=== PATIENT | female | born 2000 | race Caucasian/White ===

== ENCOUNTER 2023-01-22 00:57 | Emergency (ER) | payer OTHER, SELFPAY ==
[2023-01-22 01:04] VITALS: BP 160/99; PULSE 74; RESP 16; TEMP 36.6; O2SAT 99; BMI 21.9
--- NOTE | 2023-01-22 01:04 | ECG_ITS ---
[facility] Test Date: 2023-01-22 Pat Name: Lydia Adam Department: Room: Gender: Female Auto Parker: : 2000 Requested By: Estrada Barth Order Number: [id number] Milo MD: Dheeraj Vela M.D. Measurements Intervals [place] Rate: 77 P: 77 [place]: 166 QRS: 117 QRSD: 112 T: 83 QT: 387 QTc: 440 Interpretive Statements SINUS RHYTHM INCOMPLETE RIGHT BUNDLE BRANCH BLOCK [90+ ms QRS DURATION, TERMINAL R IN V1/V2, 40+ ms S IN I/aVL/V4/V5/V6] LEFT POSTERIOR FASCICULAR BLOCK [QRS AXIS > 109, INFERIOR Q] No previous ECG available for comparison Electronically Signed On 01-22-2023 8:36:41 BUSINESS CONTINUITY COORDINATOR by Dheeraj Vela M.D. [email or web address]
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
[2023-01-22 01:25] VITALS: BP 159/101; PULSE 70; RESP 21; O2SAT 97
[2023-01-22 01:26] LABS: Basophils % 0.4 %; Eosinophils # 0.1 10^3/uL (0.0-0.8); Eosinophils % 1.3 %; Hematocrit 37.4 % (36-47); Lymphocytes # 2.4 10^3/uL (0.8-4.8); Lymphocytes % 24.7 %; Mean Corpuscular HGB Conc 33.7 g/dL (30-55); Mean Corpuscular Hemoglobin 33.7 pg (27-33); Mean Platelet Volume 9.2 fL (7.4-10.4); Monocytes # 0.9 10^3/uL (0.2-0.9); Monocytes % 9.3 %; Neutrophils # 6.31 10^3/uL (1.8-7.7); Neutrophils % 63.9 %; Nucleated Red Blood Cells % 0 %; Platelet Count 373 10^3/cmm (157-399); Red Blood Count 3.74 10^6/uL (3.85-5.65); Red Cell Distribution Width 13.7 % (12.1-15.1); White Blood Count 9.88 10^3/uL (3.29-11.43)
[2023-01-22 01:46] LABS: HCG, Serum Qual Negative (Negative)
[2023-01-22 01:52] LABS: Troponin(5th) Baseline < 6 ng/L (0-10)
[2023-01-22] MEDS: ketorolac 30 mg/mL INJ IVP (01:52)
[2023-01-22] MEDS: ondansetron 2 mg/ML SDV 2 mL 4 MG IVP (01:52)
--- NOTE | 2023-01-22 01:55 | ED_ITS ---
HPI - Chest Pain 2 General: Chief Complaint: Chest Pain Stated Complaint: Chest Pains Time Seen by Provider: 01/22/23 01:13 History of Present Illness: 22-year-old female with no prior history . She presents with left-sided chest discomfort radiating from posterior to anterior. It is worse with deep breath or coughing. She has been coughing over the last couple of days. Minimal amounts of sputum production. No fever. No leg swelling. Physical Exam 2 Const: COMMON NORMALS: no acute distress GENERAL APPEARANCE: cooperative; not ill appearing and not frail appearing HENMT: COMMON NORMALS: normocephalic, atraumatic and Normal external nose present HEAD & SCALP: normocephalic and atraumatic FACE & SINUS: normal facial exam and face symmetric NOSE: Normal external nose present Eye: COMMON NORMALS: Equal, round and reactive pupils present and EOMs intact bilaterally PUPIL: Yes Equal, round and reactive pupils present Neck/C-Spine: GENERAL: Yes trachea midline Chest: CHEST: Yes Symmetrical chest wall rise and Yes tenderness (left anterior and posterior. ) Resp: COMMON NORMALS: normal respiratory effort, No retractions, No use of accessory muscles and clear to auscultation bilaterally AUSCULTATION: clear to auscultation bilaterally Cardio: COMMON NORMALS: regular rate and regular rhythm RATE: regular rate RHYTHM: regular rhythm GI: COMMON NORMALS: Normal to inspection, nondistended, normoactive bowel sounds present Extremity: COMMON NORMALS: no pedal edema Neuro: ROGELIO COMA SCALE: document GCS findings [place] coma scale eye opening: Spontaneous [place] coma scale verbal response: Orientated [place] coma scale motor response: Obey commands Rogelio coma scale total score: 15 S ENSORY EXAM: Yes extremities (intact) Psych: COMMON NORMALS: speech normal SPEECH: Yes normal speech Skin: COMMON NORMALS: no rashes or lesions noted GENERAL SKIN EXAM: no rashes or lesions noted Course 2 Vital Signs: Vital signs: Vital Signs Temperature 98 F 01/22/23 01:04 Pulse Rate 65 01/22/23 03:08 Respiratory Rate 21 H 01/22/23 03:08 Blood Pressure 124/74 01/22/23 03:08 Pulse Oximetry 95 01/22/23 03:08 Oxygen Delivery Me thod Room Air 01/22/23 01:04 MDM - Chest Pain Medical Decision Making Reproducible chest pain in a young healthy patient. CBC is normal. EKG shows a sinus rhythm with incomplete right bundle branch block. [place]um is right. Rate is 75. Chest x-ray is not remarkable. Trops are negative. Labs not remarkable. Tx for costochondritis. Lab Data 01/22/23 00:19 12 00:19 Radiology Impressions Chest X-Ray 01/22/23 01:14 IMPRESSION: No acute findings. Laboratory Results WBC 9.88 10^3/uL (3.29-11.43) 01/22/23 00:19 RBC 3.74 10^6/uL (3.85-5.65) L 01/22/23 00:19 Hgb 12.60 g/dL (11.27-16.99) 01/22/23 00: Hct 37.4 % (36-47) 01/22/23 00:19 MCV 100.0 fl (85-98) H 01/22/23 00:19 MCH 33.7 pg (27-33) H 01/22/23: MCHC 33.7 g/dL (30-55) 01/22/23 00: RDW 13.7 % (12.1-15.1) 01/22/23 00:19 Plt Count 373 10^3/cmm (157-399) 01/22/23:19 MPV 9.2 fL (7.4-10.4) 01/22/23 00:19 Neut % (Auto) 63.9 % 01/22/23 00:19 Lymph % (Auto) 24.7 % 01/22/23:19 [place] % (Auto) 9.3 % 01/22/23:19 Eos % (Auto) 1.3 % 01/22/23 00:19 Baso % (Auto) 0.4 % 01/22/23 00:19 Neut # (Auto) 6.31 10^3/uL (1.8-7.7) 01/22/23 00:19 Lymph # (Auto) 2.4 10^3/uL (0.8-4.8) 01/22/23 00:19 [place] # (Auto) 0.9 10^3/uL (0.2-0.9) 01/22/23 00:19 Eos # (Auto) 0.1 10^3/uL (0.0-0.8) 01/22/23 00:19 Baso # (Auto) 0.0 10^3/uL (0.0-0.1) 01/22/23 00:19 Nucleated RBC % (auto) 0 % 01/22/23 00: Nucleated RBCs # 0.0 /100WBC 01/22/23 00:19 Sodium 136 mmol/L (136-145) 01/22/23 00:19 Potassium 3.8 mmol/L (3.5-5.1) 01/22/23 00:19 Chloride 101 mmol/L (98-107) 01/22/23 00:19 Carbon Dioxide 23 mmol/L (22-29) 01/22/23 00:19 Anion Gap 15.8 (5-19) 01/22/23:19 BUN 15 mg/dL (6-20) 01/22/23 00:19 Creatinine 0.8 mg/dL (0.5-0.9) 01/22/23 00:19 GFR Calculation 88.1 mL/min (90-130) L 01/22/23 00:19 Glucose 92 mg/dL (65-115) 01/22/23 00:19 Calculated Osmolality 282 mOsm/kg (285-295) L 01/22/23 00:19 Calcium 9.4 mg/dL (8.5-10.5) 01/22/23 00:19 Total Bilirubin 0.2 mg/dL (0.15-1.2) 01/22/23 00:19 AST 32 U/L (0-32) 01/22/23 00:19 ALT 30 U/L (0-33) 01/22/23 00:19 Alkaline Phosphatase 58 U/L (35-105) 01/22/23 00:19 Creatine Kinase 73 U/L (26-192) 01/22/23 00:19 Troponin T Baseline < 6 ng/L (0-10) 01/22/23 00:19 Troponin T 120 Minute 6.00 ng/L (0-10) 01/22/23 02:05 Delta Troponin T 0.06387 ABS# (0-10) 01/22/23 02:05 NT-Pro-B Natriuret Pep 149 pg/mL (0-125) H 01/22/23 00:19 Total Protein 7.0 g/dL (6.6-8.7) 01/22/23 00:19 Albumin 4.1 g/dL (3.5-5.2) 01/22/23 00:19 Globulin 2.9 g/dL (1.3-4.6) 01/22/23 00:19 HCG, Qual Negative (Negative) 01/22/23 00:19 All radiology interpretation(s) finalized by discharge Discharge Plan Discharge Patient Disposition: Home Clinical Impression: Atypical chest pain, Costalchondritis Condition: Stable Prescriptions: New ketorolac 10 mg tablet 10 mg PO TID PRN (Reason: pain) Qty: 10 0RF Discharge Orders: Discharge ED (Routine); Ordered 01/22/23 Ordered By: Estrada Simon Patient Instructions: Chest Wall Pain (ED), Opioid Safety, Pain Management Coding 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
[2023-01-22 02:03] LABS: Alanine Aminotransferase 30 U/L (0-33); Albumin Level 4.1 g/dL (3.5-5.2); Alkaline Phosphatase 58 U/L (35-105); Anion Gap 15.8 (5-19); Aspartate Amino Transferase 32 U/L (0-32); Blood Urea Nitrogen 15 mg/dL (6-20); Calcium 9.4 mg/dL (8.5-10.5); Carbon Dioxide 23 mmol/L (22-29); Chloride 101 mmol/L (98-107); Creatine Phosphokinase 73 U/L (26-192); Globulin 2.9 g/dL (1.3-4.6); Glomerular Filtration Rate 88.1 mL/min (90-130); Glucose 92 mg/dL (65-115); NT Pro B Type Natriuretic Pept 149 pg/mL (0-125); Osmolality Calculated 282 mOsm/kg (285-295); Potassium 3.8 mmol/L (3.5-5.1); Sodium 136 mmol/L (136-145); Total Bilirubin 0.2 mg/dL (0.15-1.2)
[2023-01-22 02:33] LABS: Troponin 5 2HR Delta 0.00001 ABS# (0-10)
[2023-01-22 03:08] VITALS: BP 124/74; PULSE 65; RESP 21; O2SAT 95
== END 2023-01-22 03:29 | disposition home or self-care (01) ==
PROVIDERS: Emergency Provider Emergency Medicine
DX: R07.89 Other chest pain (principal); M94.0 Chondrocostal junction syndrome [Tietze]
CPT/HCPCS: 36415; 71045; 80053; 82550; 83880; 84484; 84703; 85025; 93005; 96374; 96375; 99285; J1885; J2405

== ENCOUNTER 2023-09-02 18:45 | Emergency (ER) | payer OTHER, SELFPAY ==
[2023-09-02 18:45] VITALS: BP 136/81; PULSE 75; RESP 20; TEMP 36.4; O2SAT 96; BMI 21.9
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
[2023-09-02 18:55] VITALS: BP 136/81; PULSE 73; RESP 20; O2SAT 94
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
[2023-09-02 19:24] LABS: Basophils # 0.1 10^3/uL (0.0-0.1); Basophils % 1.1 %; Eosinophils # 0.2 10^3/uL (0.0-0.8); Eosinophils % 1.9 %; Hematocrit 44.9 % (36-47); Lymphocytes # 2.3 10^3/uL (0.8-4.8); Lymphocytes % 27.4 %; Mean Corpuscular HGB Conc 33.6 g/dL (30-55); Mean Corpuscular Hemoglobin 32.3 pg (27-33); Mean Corpuscular Volume 95.9 fl (85-98); Mean Platelet Volume 9.2 fL (7.4-10.4); Monocytes # 0.8 10^3/uL (0.2-0.9); Monocytes % 9.2 %; Neutrophils # 5.14 10^3/uL (1.8-7.7); Nucleated Red Blood Cells % 0 %; Platelet Count 310 10^3/cmm (157-399); Red Blood Count 4.68 10^6/uL (3.85-5.65); Red Cell Distribution Width 11.2 % (12.1-15.1); White Blood Count 8.55 10^3/uL (3.29-11.43)
[2023-09-02 19:45] LABS: Add Urine Microscopic? NO; Charge for UA Resulting for Rev
[2023-09-02 19:45] LABS: Alanine Aminotransferase 100 U/L (0-33); Albumin Level 4.9 g/dL (3.5-5.2); Alkaline Phosphatase 58 U/L (35-105); Anion Gap 21.5 (5-19); Aspartate Amino Transferase 98 U/L (0-32); Blood Urea Nitrogen 6 mg/dL (6-20); Carbon Dioxide 17 mmol/L (22-29); Chloride 99 mmol/L (98-107); Creatinine Clr Calc Pharmacy 141.1067; Globulin 3.3 g/dL (1.3-4.6); Glomerular Filtration Rate 121.8 mL/min (90-130); Glucose 75 mg/dL (65-115); Osmolality Calculated 274 mOsm/kg (285-295); Potassium 3.5 mmol/L (3.5-5.1); Sodium 134 mmol/L (136-145); Total Bilirubin 0.3 mg/dL (0.15-1.2); Total Protein 8.2 g/dL (6.6-8.7)
[2023-09-02 19:51] LABS: Alcohol Level 328 mg/dL (0-10)
[2023-09-02 19:51] LABS: Bilirubin Urine Neg (Negative); Blood Urine Neg (Negative); Glucose Urine UA Norm (Normal); Ketones Urine Negative (Negative); Leukocyte Esterase Urine Negative (Negative); Nitrate Urine Negative (Negative); Protein Urine Neg (Negative); Urine Appearance Clear (CLEAR); Urine Color Yellow (Yellow); Urobilinogen Urine Neg (Negative); pH Urine 5 (5-7)
[2023-09-02 20:34] VITALS: BP 129/75; PULSE 61; RESP 18; O2SAT 96
== END 2023-09-02 20:36 | disposition home or self-care (01) ==
PROVIDERS: Emergency Provider Emergency Medicine; PCP Family Medicine
DX: S06.0X1A Concussion with loss of consciousness of 30 minutes or less, initial encounter (principal); F10.920 Alcohol use, unspecified with intoxication, uncomplicated; Y90.8 Blood alcohol level of 240 mg/100 ml or more; V86.99XA Unspecified occupant of other special all-terrain or other off-road motor vehicle injured in nontraffic accident, initial encounter
CPT/HCPCS: 36415; 70450; 72125; 80053; 80307; 81003; 85025; 99284

== ENCOUNTER 2023-12-26 18:39 | Inpatient (IN) | payer OTHER, SELFPAY ==
[2023-12-26] VITALS (8 sets, daily range): BP systolic 117–150; BP diastolic 72–91; PULSE 66–75; RESP 16–24; TEMP 36.6–36.8; O2SAT 96–100; BMI 21.9
[2023-12-26 19:36] LABS: Basophils % 0.4 %; Lymphocytes # 1.8 10^3/uL (0.8-4.8); Lymphocytes % 21.6 %; Mean Corpuscular HGB Conc 33.8 g/dL (30-55); Mean Corpuscular Hemoglobin 33.1 pg (27-33); Mean Corpuscular Volume 98.2 fl (85-98); Mean Platelet Volume 10.8 fL (7.4-10.4); Monocytes # 0.5 10^3/uL (0.2-0.9); Monocytes % 5.3 %; Neutrophils # 6.14 10^3/uL (1.8-7.7); Neutrophils % 72.2 %; Nucleated Red Blood Cells % 0 %; Platelet Count 173 10^3/cmm (157-399); Red Blood Count 4.89 10^6/uL (3.85-5.65); Red Cell Distribution Width 16.3 % (12.1-15.1); White Blood Count 8.49 10^3/uL (3.29-11.43)
[2023-12-26 19:37] LABS: HCG, Serum Qual Negative (Negative)
[2023-12-26 19:44] LABS: Alanine Aminotransferase 151 U/L (0-33); Albumin Level 3.7 g/dL (3.5-5.2); Alkaline Phosphatase 207 U/L (35-105); Aspartate Amino Transferase 299 U/L (0-32); Blood Urea Nitrogen 4 mg/dL (6-20); Calcium 8.7 mg/dL (8.5-10.5); Carbon Dioxide 20 mmol/L (22-29); Chloride 92 mmol/L (98-107); Globulin 2.7 g/dL (1.3-4.6); Glomerular Filtration Rate 87.4 mL/min (90-130); Glucose 122 mg/dL (65-115); Lipase 283 U/L (13-60); Osmolality Calculated 268 mOsm/kg (285-295); Sodium 130 mmol/L (136-145); Total Bilirubin 2.3 mg/dL (0.15-1.2); Total Protein 6.4 g/dL (6.6-8.7)
[2023-12-26 20:06] LABS: Anion Gap 21.9 (5-19); Potassium 3.9 mmol/L (3.5-5.1)
--- NOTE | 2023-12-26 20:11 | USR_ITS ---
PROCEDURE INFORMATION: Exam: US Abdomen, Limited; Right Upper Quadrant Exam date and time: 12/26/2023 7:23 PM Age: 23 years old Clinical indication: Abdominal pain; Epigastric; ; Additional info: Ruq pain TECHNIQUE: Imaging protocol: Real time ultrasound of the abdomen with image documentation. Limited exam focused on the right upper quadrant. COMPARISON: No relevant prior studies available. FINDINGS: Liver: Echogenic. No masses. Gallbladder: Normal. No gallstones. There is no gallbladder wall thickening. Biliary ducts: Normal. No stones. No dilation. Pancreas: Visualized pancreas psoas edema surrounding the pancreatic tail. Right kidney: Normal. No mass. No hydronephrosis. US/US gall bladder [id number] IMPRESSION: Edema surrounding the pancreatic tail.
--- NOTE | 2023-12-26 20:11 | CTR_ITS ---
PROCEDURE INFORMATION: Exam: CT Abdomen And Pelvis With Contrast Exam date and time: 12/26/2023 9:13 PM Age: 23 years old Clinical indication: Abdominal pain; Additional info: Ruq pain TECHNIQUE: Imaging protocol: Computed tomography of the abdomen and pelvis with contrast. Radiation optimization: All CT scans at this facility use at least one of these dose optimization techniques: automated exposure control; mA and/or kV adjustment per patient size (includes targeted exams where dose is matched to clinical indication); or iterative reconstruction. Contrast material: OMNI 350; Contrast volume: 100 ml; Contrast route: INTRAVENOUS (IV); COMPARISON: US gall bladder [id number] 12/26/2023 7:23 PM RADIATION DOSE METRICS: Total DLP (mGy-cm): 390.27 FINDINGS: Diaphragm: Small hiatal hernia Liver: Decreased density of the liver, evidence for fatty infiltration. Gallbladder and biliary ducts: Normal. No calcified stones. No ductal dilation. Pancreas: Stranding and fluid surrounding the tail pancreas. Spleen: Normal. No splenomegaly. Adrenal glands: Normal. No mass. Kidneys and ureters: Normal. No hydronephrosis. Stomach and bowel: Unremarkable. No obstruction. No mucosal thickening. Appendix: No evidence of appendicitis. Intraperitoneal space: Unremarkable. No free air. No significant fluid collection. Vasculature: Unremarkable. No abdominal aortic aneurysm. Lymph nodes: Unremarkable. No enlarged lymph nodes. Urinary bladder: Unremarkable as visualized. Reproductive: Unremarkable as visualized. Bones/joints: Unremarkable. No acute fracture. Soft tissues: Unremarkable. CT/CT abdomen pelvis w con* [id number] IMPRESSION: Stranding and fluid surrounding the tail of the pancreas. Findings compatible with acute pancreatitis without pseudocyst .
[2023-12-26 20:13] LABS: Alcohol Level < 10 mg/dL (0-10)
--- NOTE | 2023-12-26 20:14 | ED_ITS ---
HPI - Abdominal Pain 2 General: Chief Complaint: Abdominal Pain Stated Complaint: abd pain Time Seen by Provider: 12/26/23 19:48 Source: patient Mode of arrival: ambulatory Limitations: no limitations History of Present Illness: 23-year-old female states she has been o n a drinking binge she states that she does drink alcohol regularly but not daily states she had been on a binge last 3 days started having severe epigastric abdominal pain with nausea and vomiting states pain sharp in nature in her epigastric and right upper quadrant rates her pain a 9 out of 10 denies any history of any gallbladder issues denies any abdominal surgeries Associated Symptoms: Reports nausea and vomiting; Denies chills, diarrhea, dysuria and fever(s) Related Data Date of Last Menstrual Period: 11/23/23 Previous Rx's Medication Instructions Recorded ketorolac 10 mg tablet 10 mg PO TID PRN pain #10 tabs 01/22/23 Allergies Allergy/AdvReac Type Severity Reaction Status Date / Time No Known Allergies Allergy Verified 12/26/23 19:31 Review of Systems 2 Const: Denies: fever(s), chills, body aches or change in appetite ENMT: Denies: throat pain or dental pain Card: Denies: chest pain Resp: Denies: dyspnea GI: Reports: abdominal pain, nausea and vomiting; Denies: diarrhea : Denies: dysuria Musc: Denies: neck pain or back pain Skin/Breast: Denies: rash Neuro: Denies: headache(s) [facility] ED 2 Female Reproductive History: Date of last menstrual period: 11/23/23 Physical Exam 2 Const: COMMON NORMALS: no acute distress, patient oriented x3 and healthy appearing HENMT: COMMON NORMALS: normocephalic and atraumatic HEAD & SCALP: n ormocephalic and atraumatic Neck/C-Spine: COMMON NORMALS: full ROM and supple Chest: COMMONS NORMALS: normal inspection of the chest Resp: COMMON NORMALS: normal respiratory effort, No retractions, No use of accessory muscles and clear to auscultation bilaterally AUSCULTATION: clear to auscultation bilaterally Cardio: COMMON NORMALS: regular rate RATE: regular rate GI: COMMON NORMALS: Normal to inspection, nondistended, normoactive bowel sounds present, Soft to palpation and no masses PALPATION: Yes Soft to palpation and Yes Tenderness to palpation present (GI) Details: RUQ Extremity: COMMON NORMALS: normal to inspection and full ROM Neuro: COMMON NORMALS: patient oriented x3, moves all extremities and no focal motor deficits Psych: COMMON NORMALS: mental status grossly normal, Normal thought process present and cooperative THOUGHT PROCESS: Normal thought process present Skin: COMMON NORMALS: no rashes or lesions noted and no wounds GENERAL SKIN EXAM: no rashes or lesions noted Course 2 Vital Signs: Vital signs: Vital Signs Temperature 97.9 F 12/26/23 19:20 Pulse Rate 66 12/26/23 22:00 Respiratory Rate 18 12/26/23 21:22 Blood Pressure 124/72 12/26/23 22:00 Pulse Oximetry 96 12/26/23 22:00 Oxygen Delivery Me thod Room Air 12/26/23 22:00 MDM - Abdominal Pain Medical Decision Making Patient presents with abdominal pain she does have pancreatitis no signs of gallstone or common bile duct dilatation likely from alcohol abuse pain has improved spoke to hospitalist will admit for observation Medical Records I reviewed the patient's medical records. Lab Data I reviewed the patient's lab results. 12/26/23 19:27 12/26/23 19:14 Labs/Radiology: Radiology Impressions Abdomen/Pelvis CT 12/26/23 20:11 IMPRESSION: Stranding and fluid surrounding the tail of the pancreas. Findings compatible with acute pancreatitis without pseudocyst . Gallbladder Ultrasound 12/26/23 20:11 IMPRESSION: Edema surrounding the pancreatic tail. Laboratory Results WBC 8.49 10^3/uL (3.29-11.43) 12/26/23 19:27 RBC 4.89 10^6/uL (3.85-5.65) 12/26/23 19:27 Hgb 16.20 g/dL (11.27-16.99) 12/26/23 19:27 Hct 48.0 % (36-47) H 12/26/23 19:27 MCV 98.2 fl (85-98) H 12/26/23 19:27 MCH 33.1 pg (27-33) H 12/26/23 19:27 MCHC 33.8 g/dL (30-55) 12/26/23 19:27 RDW 16.3 % (12.1-15.1) H 12/26/23 19:27 Plt Count 173 10^3/cmm (157-399) 12/26/23 19: MPV 10.8 fL (7.4-10.4) H 12/26/23 19: Neut % (Auto) 72.2 % 12/26/23 19: Lymph % (Auto) 21.6 % 12/26/23 19: [place] % (Auto) 5.3 % 12/26/23 19: Eos % (Auto) 0.0 % 12/26/23 19: Baso % (Auto) 0.4 % 12/26/23 19: Neut # (Auto) 6.14 10^3/uL (1.8-7.7) 12/26/23 19: Lymph # (Auto) 1.8 10^3/uL (0.8-4.8) 12/26/23 19: [place] # (Auto) 0.5 10^3/uL (0.2-0.9) 12/26/23 19: Eos # (Auto) 0.0 10^3/uL (0.0-0.8) 12/26/23 19: Baso # (Auto) 0.0 10^3/uL (0.0-0.1) 12/26/23 19: Nucleated RBC % (auto) 0 % 12/26/23 19: Nucleated RBCs # 0.0 /100WBC 12/26/23 19:27 Sodium 130 mmol/L (136-145) L 12/26/23 19:14 Potassium 3.9 mmol/L (3.5-5.1) 12/26/23 19:14 Chloride 92 mmol/L (98-107) L 12/26/23 19:14 Carbon Dioxide 20 mmol/L (22-29) L 12/26/23 19:14 Anion Gap 21.9 (5-19) H 12/26/23 19:14 BUN 4 mg/dL (6-20) L 12/26/23 19:14 Creatinine 0.8 mg/dL (0.5-0.9) 12/26/23 19:14 GFR Calculation 87.4 mL/min (90-130) L 12/26/23 19:14 Glucose 122 mg/dL (65-115) H 12/26/23 19:14 Calculated Osmolality 268 mOsm/kg (285-295) L 12/26/23 19:14 Calcium 8.7 mg/dL (8.5-10.5) 12/26/23 19:14 Total Bilirubin 2.3 mg/dL (0.15-1.2) H 12/26/23 19:14 AST 299 U/L (0-32) H 12/26/23 19:14 ALT 151 U/L (0-33) H 12/26/23 19:14 Alkaline Phosphatase 207 U/L (35-105) H 12/26/23 19:14 Total Protein 6.4 g/dL (6.6-8.7) L 12/26/23 19:14 Albumin 3.7 g/dL (3.5-5.2) 12/26/23 19:14 Globulin 2.7 g/dL (1.3-4.6) 12/26/23 19:14 Lipase 283 U/L (13-60) H 12/26/23 19:14 HCG, Qual Negative (Negative) 12/26/23 19:14 Ethyl Alcohol < 10 mg/dL (0-10) 12/26/23 19:14 No radiology studies performed this visit Discharge Plan Discharge Patient Disposition: Admitted As Inpatient Clinical Impression: Pancreatitis Condition: Stable 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
[2023-12-26] MEDS: morphine 4 mg/mL SDV 1 mL IVP (20:43)
[2023-12-26] MEDS: metoclopramide 5 mg/mL SDV 2 mL 10 MG IVP (20:44)
[2023-12-26] MEDS: diphenhydrAMINE 50 mg/mL SDV 1mL IVP (20:54)
[2023-12-26] MEDS: iohexol 350 mg/mL 500 mL Btl (per mL) IV (21:14)
[2023-12-26] MEDS: sodium chloride 0.9% 1,000 ML 999 ML IV (21:21)
--- NOTE | 2023-12-26 22:03 | P.HP_ITS ---
Providers/Chief Complaint 2 Primary Care Provider: Cory Judd MD Chief Complaint: abd pain History of Present Illness Lydia Adam is a 23 year old female with no significant past medical history presented with chief complaint nausea vomiting abdominal pain. Patient is stating that she is drinking beer and vodka almost on daily basis more than 6 shots a day. Never had pancreatitis in the past presented with 72 hours of nausea vomiting abdominal pain. Patient has vomited more than 20 times. Complaining of epigastric pain. No blood in vomit. Not able to tolerate anything p.o., presentation consistent with pancreatitis Review of Systems 2 Const: Denies: fever(s) Eyes: Denies: change in vision ENMT: Denies: throat pain Card: Denies: chest pain Resp: Denies: dyspnea GI: Reports: abdominal pain, nausea and vomiting : Denies: flank pain Medications/Allergies Home Medications Medication Instructions Recorded Confirmed Last Taken Type ketorolac 10 mg tablet 10 mg PO TID PRN pain #10 tabs 01/22/23 Unknown Rx Allergies Allergy/AdvReac Type Severity Reaction Status Date / Time No Known Allergies Allergy Verified 12/26/23 19:31 PFSH Acute 2 Female Reproductive History: Date of last menstrual period: 11/23/23 Vitals/I&O/Wt Last Vital Signs Temp 97.9 F 12/26/23 19:20 Pulse 70 12/26/23 21:22 Resp 18 12/26/23 21:22 BP 136/91 12/26/23 21:22 Pulse Ox 98 12/26/23 21:22 O2 Del Method Room Air 12/26/23 21:22 Weight last 48 hrs Weight 63.503 kg Physical Exam 2 Narrative: Pleasant cooperative Young female Nonfocal neuroexam Epigastric tenderness Awake and alert Complaining of pain in abdomen Hemodynamically stable Currently on room air S1, S2 Clinically looks dehydrated Data 12/26/23 19:27 12/26/23 19:14 A&P Assessment and plan (1) Pancreatitis: Plan Alcohol-induced pancreatitis Will keep on clear liquid diet Dilaudid for pain management Start lactated Ringer at maintenance rate DVT prophylaxis added Full code Will put on CIWA protocol as well test is negative Attestations 2 Medical Necessity Statement*: Anticipating discharge within 48 hours Diagnoses Pancreatitis K85.90
--- NOTE | 2023-12-26 22:14 | PC.NURSE ---
Report called to Sarah on med surg, 250/ at 2210.
[2023-12-26 22:39] LABS: Bilirubin Urine Negative (Negative); Blood Urine Negative (Negative); Glucose Urine UA Negative (Normal); Ketones Urine Negative (Negative); Leukocyte Esterase Urine Negative (Negative); Nitrate Urine Negative (Negative); Protein Urine Negative (Negative); Urine Appearance Clear (CLEAR); Urine Color Yellow (Yellow); pH Urine 6.5 (5-7)
[2023-12-26 22:41] LABS: Add Urine Microscopic? YES; Bacteria Urine None Seen /hpf; Hyaline Casts Urine 0-4 /lpf; RBC Urine 0-2 /hpf (0-2); Specific Gravity, Urine 1.036 (1.005-1.030); Squamous Epithelial Cell Urine 0-5 /hpf (0-5); WBC Urine 0-5 /hpf (0-5)
[2023-12-26] MEDS: lactated ringers 1,000 ML 75 ML IV (23:01)
[2023-12-26] MEDS: enoxaparin 40 mg/0.4 mL Syringe SUBCUT (23:01)
[2023-12-26] MEDS: lanolin oint 7 gm 1 APPLIC TOPICAL (23:01)
[2023-12-26] MEDS: HYDROmorphone 1 mg/mL INJ 1 mL 0.4 MG IVP (23:02)
[2023-12-27] VITALS (11 sets, daily range): BP systolic 130–134; BP diastolic 82–90; PULSE 57–83; RESP 16–24; TEMP 36.6–36.8; O2SAT 94–97
[2023-12-27 05:07] LABS: Basophils % 0.3 %; Eosinophils % 0.3 %; Hematocrit 35.7 % (36-47); Lymphocytes # 2.1 10^3/uL (0.8-4.8); Mean Corpuscular HGB Conc 36.4 g/dL (30-55); Mean Corpuscular Hemoglobin 33.1 pg (27-33); Mean Corpuscular Volume 90.8 fl (85-98); Mean Platelet Volume 11.8 fL (7.4-10.4); Monocytes # 0.5 10^3/uL (0.2-0.9); Monocytes % 6.3 %; Neutrophils # 5.31 10^3/uL (1.8-7.7); Neutrophils % 66.6 %; Nucleated Red Blood Cells % 0 %; Platelet Count 140 10^3/cmm (157-399); Red Blood Count 3.93 10^6/uL (3.85-5.65); Red Cell Distribution Width 15.3 % (12.1-15.1); White Blood Count 7.96 10^3/uL (3.29-11.43)
[2023-12-27 05:26] LABS: Slide Review Slide Review Perform
[2023-12-27 05:34] LABS: Alanine Aminotransferase 119 U/L (0-33); Alkaline Phosphatase 173 U/L (35-105); Blood Urea Nitrogen 3 mg/dL (6-20); Calcium 7.4 mg/dL (8.5-10.5); Carbon Dioxide 18 mmol/L (22-29); Chloride 100 mmol/L (98-107); Creatinine Clr Calc Pharmacy 117.7818; Globulin 2.7 g/dL (1.3-4.6); Glucose 102 mg/dL (65-115); Magnesium 1.5 mg/dL (1.7-2.3); Osmolality Calculated 273 mOsm/kg (285-295); Sodium 133 mmol/L (136-145); Total Bilirubin 1.8 mg/dL (0.15-1.2); Total Protein 5.7 g/dL (6.6-8.7)
[2023-12-27 05:46] LABS: Anion Gap 19.2 (5-19); Aspartate Amino Transferase 201 U/L (0-32); Potassium 4.2 mmol/L (3.5-5.1)
[2023-12-27] MEDS: HYDROmorphone 1 mg/mL INJ 1 mL 0.4 MG IVP ×4 (06:11→19:35)
[2023-12-27] MEDS: ondansetron 2 mg/ML SDV 2 mL 4 MG IVP (06:15)
--- NOTE | 2023-12-27 07:08 | PC.NURSE ---
Pt states to this nurse that her last drink of alcohol was around 1100 on 12/26/23. States she had two small bottles of [place] honey and a beer.
[2023-12-27] MEDS: folic acid 1 mg Tablet PO (08:05)
[2023-12-27] MEDS: thiamine 100 mg Tablet PO (08:05)
[2023-12-27] MEDS: nicotine 21 mg Patch 1 PATCH TRANSDERMA (08:05)
[2023-12-27] MEDS: multivitamin therapeutic Tablet 1 TAB PO (08:05)
[2023-12-27] MEDS: pantoprazole 40 mg SDV IVP ×2 (08:06→17:05)
--- NOTE | 2023-12-27 10:14 | PC.CHAP ---
Pastoral Care Encounter/Spiritual Assessment Type of Contact [] Declined soup mixer visit [] Patient/Family/Request visit [] Outpatient visit [] Follow-up visit [] Physician referral [] Code/Alert [x] Routine visit [] Staff referral [] Actively dying [] Patient sleeping [] Family support [] [] Out of room [] Palliative care [] [] Receiving care in room [] Pre-surgical visit [] Trauma [] Long length of stay [] ICU visit [] Other: Relational/Emotional Strength [x] Patient feels connected with others/family/visitors/staff [] Distress [] Loneliness/isolation [] Abandonment Spirituality of Patient [x] Person of Vania [] Attends [employer] of their Vania [x] Believes in Prayer [] Reads Bible or Christian materials [] There are Spiritual issues to be addressed [employer] Interventions [x] Prayer [x] Active listening [] Non-anxious presence [x] Spiritual/emotional support [] Crisis/trauma care [] Spiritual counseling [] Bereavement support [] Provided bereavement packet [] Provided Bible/devotional materials [] Provided toy/stuffed animal, coloring book to patient or family member [] Provided Communion [] Anointing/[place] [] Salvation [x] Completed spiritual assessment [] Other: Impact on Illness or Injury [] Angry [] Fearful [] Anxious [] Often cries [] Exhaustion [] Unable to work [] Unable to attend temple [] Unable to walk/stand [] Unable to read [] Unable to drive [] Unable to eat/drink [] Unable to sleep [] Unable to be with family [] Patient intubated [] Other: Summary Time spent with patient 5 min
[2023-12-27] MEDS: lactated ringers 1,000 ML 75 ML IV (10:48)
[2023-12-27] MEDS: magnesium sulfate premix 1 GM/100 ML PIGGYBACK IV (12:37)
--- NOTE | 2023-12-27 16:07 | P.PN_ITS ---
Subjective 2 Subjective: Patient was seen this morning, she is passing gas from below, she continues to have abdominal pain, but improved compared to the night before, no visual hallucination, no tactile hallucinations, does have a mild tremor, denies any fevers, no chills Vitals/I&O/Wt Last Vital Signs Temp 98.0 F 12/27/23 11:54 Pulse 69 12/27/23 11:54 Resp 18 12/27/23 15:38 BP 133/82 12/27/23 11:54 Pulse Ox 96 12/27/23 11:54 O2 Del Method Room Air 12/27/23 11:54 12/27/23 12/27/23 12/27/23 06:59 14:59 22:59 Intake Total 600 / 1600 1263.75 / 1263.75 Balance 600 / 1200 1263.75 / 1263.75 Weight last 48 hrs Weight 60.838 kg Weight 59.421 kg Weight 63.503 kg Physical Exam 2 Const: COMMON NORMALS: no acute distress and patient oriented x3 Resp: COMMON NORMALS: normal respiratory effort, No retractions, No use of accessory muscles and clear to auscultation bilaterally AUSCULTATION: clear to auscultation bilaterally Cardio: COMMON NORMALS: regular rate, regular rhythm, S1 normal heart sound present and S2 normal heart sound present RATE: regular rate RHYTHM: r egular rhythm HEART SOUNDS: S1 normal heart sound present and S2 normal heart sound present GI: OTHER: Abdomen is soft, distended, diffuse tenderness, no guarding, no rebound, no rigidity Extremity: COMMON NORMALS: no pedal edema Neuro: COMMON NORMALS: patient oriented x3, CN's II-XII intact bilaterally and moves all extremities Psych: COMMON NORMALS: mental status grossly normal Data 12/27/23 04:12 12/27/23 04:12 A&P Assessment and plan (1) Pancreatitis: (2) Alcohol abuse with withdrawal: Plan Alcohol-induced pancreatitis CT scan abdomen pelvis CT/CT abdomen pelvis w con* [id number] IMPRESSION: Stranding and fluid surrounding the tail of the pancreas. Findings compatible with acute pancreatitis without pseudocyst . Ultrasound gallbladder US/US gall bladder [id number] IMPRESSION: Edema surrounding the pancreatic tail. Plan Will keep on clear liquid diet Dilaudid for pain management Continue LR Hypomagnesemia replace Monitor LFTs ? Banana bag DVT prophylaxis added Full code Will put on CIWA protocol as well test is negative Full code SCDs for DVT prophylaxis, Lovenox Attestations 2 Medical Necessity Statement*: Patient requires hospitalization for alcohol induced pancreatitis, alcohol withdrawal Diagnoses Pancreatitis K85.90 Alcohol abuse with withdrawal F10.139
[2023-12-27] MEDS: ipratropium-albuterol 3 mL Neb INHALATION (17:15)
[2023-12-27] MEDS: LORazepam 2 mg Tablet PO (18:32)
[2023-12-27] MEDS: enoxaparin 40 mg/0.4 mL Syringe SUBCUT (22:20)
[2023-12-28] VITALS (12 sets, daily range): BP systolic 119–150; BP diastolic 78–94; PULSE 73–87; RESP 17–20; TEMP 36.3–36.8; O2SAT 96–99
[2023-12-28] MEDS: lactated ringers 1,000 ML 75 ML IV ×2 (00:55→14:31)
[2023-12-28 05:06] LABS: Basophils % 0.2 %; Eosinophils # 0.1 10^3/uL (0.0-0.8); Eosinophils % 0.8 %; Hematocrit 36.2 % (36-47); Lymphocytes # 1.6 10^3/uL (0.8-4.8); Lymphocytes % 24.8 %; Mean Corpuscular HGB Conc 35.1 g/dL (30-55); Mean Corpuscular Hemoglobin 32.6 pg (27-33); Mean Corpuscular Volume 92.8 fl (85-98); Mean Platelet Volume 11.7 fL (7.4-10.4); Monocytes # 0.6 10^3/uL (0.2-0.9); Monocytes % 8.9 %; Nucleated Red Blood Cells % 0 %; Platelet Count 97 10^3/cmm (157-399); Red Cell Distribution Width 15.7 % (12.1-15.1)
[2023-12-28] MEDS: HYDROmorphone 1 mg/mL INJ 1 mL 0.4 MG IVP ×2 (05:07→09:05)
[2023-12-28 05:33] LABS: Alanine Aminotransferase 83 U/L (0-33); Albumin Level 2.9 g/dL (3.5-5.2); Alkaline Phosphatase 151 U/L (35-105); Anion Gap 13.7 (5-19); Aspartate Amino Transferase 112 U/L (0-32); Blood Urea Nitrogen 2 mg/dL (6-20); Calcium 7.5 mg/dL (8.5-10.5); Carbon Dioxide 25 mmol/L (22-29); Chloride 100 mmol/L (98-107); Creatinine Clr Calc Pharmacy 119.6111; Globulin 2.6 g/dL (1.3-4.6); Glucose 89 mg/dL (65-115); Magnesium 1.6 mg/dL (1.7-2.3); Osmolality Calculated 276 mOsm/kg (285-295); Phosphorus 4.1 mg/dL (2.5-4.5); Potassium 3.7 mmol/L (3.5-5.1); Sodium 135 mmol/L (136-145); Total Bilirubin 2.5 mg/dL (0.15-1.2); Total Protein 5.5 g/dL (6.6-8.7)
[2023-12-28 05:40] LABS: Slide Review Slide Review Perform
[2023-12-28] MEDS: nicotine 21 mg Patch 1 PATCH TRANSDERMA (08:23)
[2023-12-28] MEDS: pantoprazole 40 mg SDV IVP ×2 (08:23→17:13)
[2023-12-28] MEDS: multivitamin therapeutic Tablet 1 TAB PO (08:23)
[2023-12-28] MEDS: folic acid 1 mg Tablet PO (08:23)
[2023-12-28] MEDS: thiamine 100 mg Tablet PO (08:23)
--- NOTE | 2023-12-28 09:55 | XRR_ITS ---
PROCEDURE INFORMATION: Exam: XR Chest Exam date and time: 12/28/2023 10:22 AM Age: 23 years old Clinical indication: Wheezing; Additional info: Expiratory wheezes TECHNIQUE: Imaging protocol: Radiologic exam of the chest. Views: 1 view. COMPARISON: CR XR chest 1V portable [id number] 01/22/2023 1:17 AM FINDINGS: Lungs: Unremarkable. No consolidation. Pleural spaces: Unremarkable. No pleural effusion. No pneumothorax. Heart/Mediastinum: Unremarkable. No cardiomegaly. Bones/joints: There are postoperative changes involving the right clavicle. No acute bony abnormalities are appreciated. XR/XR chest 1V portable [id number] IMPRESSION: 1. No acute cardiopulmonary findings.
[2023-12-28 11:34] LABS: Estmated Average Glucose 105; Hemoglobin A1C 5.3 % (4.0-6.0)
[2023-12-28] MEDS: acetaminophen 500 mg Tablet PO (12:54)
[2023-12-28] MEDS: oxyCODONE 5 mg IR Tab/Cap PO ×3 (13:07→22:08)
--- NOTE | 2023-12-28 14:04 | P.PN_ITS ---
Subjective 2 Subjective: Patient was seen this morning, her abdominal pain is improving, no fevers, no chills, no cough, and her appetite is improving she is passing gas from below, Vitals/I&O/Wt Last Vital Signs Temp 97.4 F L 12/28/23 11:18 Pulse 83 12/28/23 11:18 Resp 17 12/28/23 13:07 BP 147/94 12/28/23 11:18 Pulse Ox 97 12/28/23 11:18 O2 Del Method Room Air 12/28/23 11:18 12/27/23 12/28/23 12/28/23 22:59 06:59 14:59 Intake Total 1235 / 2498.75 458.75 / 2957.50 360 / 360 Output Total 400 / 400 Balance 1235 / 2498.75 58.75 / 2557.50 360 / 360 Weight last 48 hrs Weight 61.779 kg Weight 60.838 kg Weight 59.421 kg Weight 63.503 kg Physical Exam 2 Const: COMMON NORMALS: no acute distress and patient oriented x3 Resp: COMMON NORMALS: normal respiratory effort, No retractions, No use of accessory muscles and clear to auscultation bilaterally AUSCULTATION: clear to auscultation bilaterally Cardio: COMMON NORMALS: regular rate, regular rhythm, S1 normal heart sound present and S2 normal heart sound present RATE: regular rate RHYTHM: r egular rhythm HEART SOUNDS: S1 normal heart sound present and S2 normal heart sound present GI: OTHER: Abdomen soft, nondistended, diffuse tenderness, good bowel sounds Extremity: COMMON NORMALS: no pedal edema Neuro: COMMON NORMALS: patient oriented x3 Psych: COMMON NORMALS: mental status grossly normal Data 12/28/23 04:34 12/28/23 04:34 A&P Assessment and plan (1) Pancreatitis: (2) Alcohol abuse with withdrawal: Plan Pancreatitis -Associated with alcohol abuse CT scan abdomen pelvis CT/CT abdomen pelvis w con* [id number] IMPRESSION: Stranding and fluid surrounding the tail of the pancreas. Findings compatible with acute pancreatitis without pseudocyst . Ultrasound gallbladder US/US gall bladder [id number] IMPRESSION: Edema surrounding the pancreatic tail. Plan Advance to GI soft diet low-fat Post oxycodone for pain control Continue LR Replace electrolytes, magnesium Monitor LFTs Monitor bili DVT prophylaxis added Full code Will put on CIWA protocol as well test is negative Full code SCDs for DVT prophylaxis, Lovenox Attestations 2 Medical Necessity Statement*: Patient requires hospitalization for pancreatitis, alcohol withdrawal Diagnoses Pancreatitis K85.90 Alcohol abuse with withdrawal F10.139
[2023-12-28] MEDS: enoxaparin 40 mg/0.4 mL Syringe SUBCUT (22:08)
[2023-12-29] VITALS (12 sets, daily range): BP systolic 127–151; BP diastolic 61–98; PULSE 67–79; RESP 15–18; TEMP 36.4–37.6; O2SAT 95–99
[2023-12-29] MEDS: lactated ringers 1,000 ML 75 ML IV ×2 (03:44→16:26)
[2023-12-29 05:46] LABS: Basophils % 0.4 %; Eosinophils # 0.1 10^3/uL (0.0-0.8); Eosinophils % 0.9 %; Hematocrit 33.5 % (36-47); Lymphocytes # 1.8 10^3/uL (0.8-4.8); Lymphocytes % 34.3 %; Mean Corpuscular HGB Conc 35.2 g/dL (30-55); Mean Corpuscular Volume 90.8 fl (85-98); Mean Platelet Volume 11.6 fL (7.4-10.4); Monocytes # 0.6 10^3/uL (0.2-0.9); Monocytes % 11.2 %; Neutrophils # 2.78 10^3/uL (1.8-7.7); Neutrophils % 52.8 %; Nucleated Red Blood Cells % 0 %; Platelet Count 88 10^3/cmm (157-399); Red Blood Count 3.69 10^6/uL (3.85-5.65); Red Cell Distribution Width 15.3 % (12.1-15.1); White Blood Count 5.27 10^3/uL (3.29-11.43)
[2023-12-29] MEDS: oxyCODONE 5 mg IR Tab/Cap PO ×5 (05:47→22:06)
[2023-12-29 06:01] LABS: Alanine Aminotransferase 62 U/L (0-33); Albumin Level 2.8 g/dL (3.5-5.2); Alkaline Phosphatase 142 U/L (35-105); Anion Gap 11.7 (5-19); Aspartate Amino Transferase 69 U/L (0-32); Blood Urea Nitrogen 2 mg/dL (6-20); Calcium 7.6 mg/dL (8.5-10.5); Carbon Dioxide 27 mmol/L (22-29); Chloride 102 mmol/L (98-107); Creatinine Clr Calc Pharmacy 119.8221; Globulin 2.7 g/dL (1.3-4.6); Glucose 84 mg/dL (65-115); Magnesium 1.5 mg/dL (1.7-2.3); Osmolality Calculated 279 mOsm/kg (285-295); Phosphorus 3.3 mg/dL (2.5-4.5); Potassium 3.7 mmol/L (3.5-5.1); Sodium 137 mmol/L (136-145); Total Protein 5.5 g/dL (6.6-8.7)
[2023-12-29] MEDS: thiamine 100 mg Tablet PO (08:39)
[2023-12-29] MEDS: nicotine 21 mg Patch 1 PATCH TRANSDERMA (08:39)
[2023-12-29] MEDS: folic acid 1 mg Tablet PO (08:39)
[2023-12-29] MEDS: magnesium lactate 84 mg Tablet PO (08:39)
[2023-12-29] MEDS: multivitamin therapeutic Tablet 1 TAB PO (08:40)
[2023-12-29] MEDS: pantoprazole 40 mg SDV IVP ×2 (08:40→17:13)
[2023-12-29 09:12] LABS: Lipase 425 U/L (13-60)
--- NOTE | 2023-12-29 14:03 | P.PN_ITS ---
Subjective 2 Subjective: Patient was seen this morning, she denies any fevers, no chills, no cough continues to have abdominal pain, but improved compared to yesterday, passing gas from below Vitals/I&O/Wt Last Vital Signs Temp 98.4 F 12/29/23 12:00 Pulse 72 12/29/23 12:00 Resp 18 12/29/23 13:47 BP 136/89 12/29/23 12:00 Pulse Ox 97 12/29/23 12:00 O2 Del Method Room Air 12/29/23 12:00 12/28/23 12/29/23 12/29/23 22:59 06:59 14:59 Intake Total 120 / 1480 991.25 / 2471.25 465 / 465 Balance 120 / 1480 991.25 / 2471.25 465 / 465 Weight last 48 hrs Weight 62.051 kg Weight 61.779 kg Physical Exam 2 Const: COMMON NORMALS: no acute distress and patient oriented x3 Neck/C-Spine: COMMON NORMALS: no JVD Resp: COMMON NORMALS: normal respiratory effort, No retractions, No use of accessory muscles and clear to auscultation bilaterally AUSCULTATION: clear to auscultation bilaterally Cardio: COMMON NORMALS: no JVD, regular rate, regular rhythm, S1 normal heart sound present and S2 normal heart sound present RATE: regular rate RHYTHM: regular rhythm HEART SOUNDS: S1 normal heart sound present and S2 normal heart sound present GI: OTHER: Abdomen soft, slightly distended, good bowel sounds, no guarding, no rebound, no rigidity, mild diffuse tenderness Extremity: COMMON NORMALS: no pedal edema Neuro: COMMON NORMALS: patient oriented x3 Psych: COMMON NORMALS: mental status grossly normal Data 12/29/23 05:26 12/29/23 05:26 A&P Assessment and plan (1) Pancreatitis: (2) Alcohol abuse with withdrawal: Plan Pancreatitis -Associated with alcohol abuse CT scan abdomen pelvis CT/CT abdomen pelvis w con* [id number] IMPRESSION: Stranding and fluid surrounding the tail of the pancreas. Findings compatible with acute pancreatitis without pseudocyst . Ultrasound gallbladder US/US gall bladder [id number] IMPRESSION: Edema surrounding the pancreatic tail. Plan Advance to GI soft diet low-fat Post oxycodone for pain control Continue LR Replace electrolytes, magnesium Monitor LFTs Monitor bili DVT prophylaxis added Full code CIWA protocol as well test is negative Full code SCDs for DVT prophylaxis, Lovenox Patient requires hospitalization for acute pancreatitis, persistent abdominal pain Attestations 2 Medical Necessity Statement*: Patient requires hospitalization for acute pancreatitis, persistent abdominal pain Diagnoses Pancreatitis K85.90 Alcohol abuse with withdrawal F10.139
[2023-12-29] MEDS: LORazepam 2 mg/mL INJ 1 mL IVP (20:13)
[2023-12-29] MEDS: enoxaparin 40 mg/0.4 mL Syringe SUBCUT (22:07)
[2023-12-30] VITALS (7 sets, daily range): BP systolic 114–146; BP diastolic 68–94; PULSE 72–81; RESP 14–17; TEMP 36.7–36.8; O2SAT 97–99
[2023-12-30] MEDS: oxyCODONE 5 mg IR Tab/Cap PO ×2 (04:26→08:22)
[2023-12-30 05:41] LABS: Basophils % 0.6 %; Eosinophils # 0.1 10^3/uL (0.0-0.8); Eosinophils % 1.1 %; Hematocrit 37.5 % (36-47); Lymphocytes # 2.2 10^3/uL (0.8-4.8); Lymphocytes % 31.6 %; Mean Corpuscular HGB Conc 34.1 g/dL (30-55); Mean Corpuscular Hemoglobin 31.9 pg (27-33); Mean Corpuscular Volume 93.5 fl (85-98); Mean Platelet Volume 12.3 fL (7.4-10.4); Monocytes % 13.7 %; Neutrophils # 3.68 10^3/uL (1.8-7.7); Neutrophils % 52.2 %; Nucleated Red Blood Cells % 0 %; Platelet Count 111 10^3/cmm (157-399); Red Blood Count 4.01 10^6/uL (3.85-5.65); Red Cell Distribution Width 15.3 % (12.1-15.1); White Blood Count 7.06 10^3/uL (3.29-11.43)
[2023-12-30] MEDS: lactated ringers 1,000 ML 75 ML IV (05:56)
[2023-12-30 06:03] LABS: Alanine Aminotransferase 62 U/L (0-33); Albumin Level 3.1 g/dL (3.5-5.2); Alkaline Phosphatase 156 U/L (35-105); Aspartate Amino Transferase 67 U/L (0-32); Blood Urea Nitrogen 2 mg/dL (6-20); Calcium 9.1 mg/dL (8.5-10.5); Carbon Dioxide 28 mmol/L (22-29); Chloride 101 mmol/L (98-107); Globulin 3.8 g/dL (1.3-4.6); Glomerular Filtration Rate 121.8 mL/min (90-130); Glucose 78 mg/dL (65-115); Magnesium 1.7 mg/dL (1.7-2.3); Osmolality Calculated 281 mOsm/kg (285-295); Phosphorus 3.3 mg/dL (2.5-4.5); Sodium 138 mmol/L (136-145); Total Bilirubin 1.9 mg/dL (0.15-1.2); Total Protein 6.9 g/dL (6.6-8.7)
[2023-12-30 06:04] LABS: Anion Gap 12.8 (5-19); Potassium 3.8 mmol/L (3.5-5.1)
[2023-12-30] MEDS: magnesium lactate 84 mg Tablet PO (08:10)
[2023-12-30] MEDS: thiamine 100 mg Tablet PO (08:11)
[2023-12-30] MEDS: multivitamin therapeutic Tablet 1 TAB PO (08:11)
[2023-12-30] MEDS: pantoprazole 40 mg SDV IVP (08:11)
[2023-12-30] MEDS: nicotine 21 mg Patch 1 PATCH TRANSDERMA (08:11)
[2023-12-30] MEDS: folic acid 1 mg Tablet PO (08:11)
--- NOTE | 2023-12-30 11:01 | PM.DCS ---
Discharge Providers Date of Admission: 12/27/23 16:11 Date of Discharge: December 30, 2023 Attending Provider at Admission: Ana Beckham MD Attending Provider at Discharge: Zi Kyle MD Primary Care Provider: Cory Judd MD Diagnoses at Discharge Discharge Diagnosis (1) Pancreatitis: Status: Acute (2) Alcohol abuse with withdrawal: Status: Acute Reason for Visit Reason for Visit: abd pain Hospital Course Hospital Course Lydia Adam is a 23 year old female with no significant past medical history presented with chief complaint nausea vomiting abdominal pain. Patient was admitted to [facility] for acute pancreatitis, associate with alcohol abuse, received bowel rest, IV fluids, CIWA protocol, overall clinically improved diet advanced, abdominal pain improved, passing gas from below, hydrating well, no fevers, no significant withdrawal symptoms. Patient was advised to abstain from alcohol consumption, have her primary care provider recheck your liver function in 1 week, discharged on a GI soft diet. Patient was advised if she were to have any recurrent abdominal pain to go to emergency room. Patient was advised to use oxycodone sparingly, do not drive, or drink, or operate heavy machinery while taking medication Physical Exam Const: COMMON NORMALS: no acute distress and patient oriented x3 Resp: COMMON NORMALS: normal respiratory effort, No retractions, No use of accessory muscles and clear to auscultation bilaterally AUSCULTATION: clear to auscultation bilaterally Cardio: COMMON NORMALS: regular rate, regular rhythm, S1 normal heart sound present and S2 normal heart sound present RATE: regular rate RHYTHM: regular rhythm HEART SOUNDS: S1 normal heart sound present and S2 normal heart sound present GI: COMMON NORMALS: Normal to inspection, nondistended, normoactive bowel sounds present and non-tender Extremity: COMMON NORMALS: no pedal edema Neuro: COMMON NORMALS: patient oriented x3 Psych: COMMON NORMALS: mental status grossly normal Discharge Data Studies Completed and Pending Completed Studies During Hospitalization Category Date Time Status CT abdomen pelvis w con* [id number] Stat Cat Scan 12/26/23 20:11 Completed CXRP [XR chest 1V portable [id number]] Routine Exams 12/28/23 09:55 Completed US gall bladder [id number] Stat Ultrasound 12/26/23 20:11 Completed Radiology Impressions Abdomen/Pelvis CT 12/26/23 20:11 IMPRESSION: Stranding and fluid surrounding the tail of the pancreas. Findings compatible with acute pancreatitis without pseudocyst . Gallbladder Ultrasound 12/26/23 20:11 IMPRESSION: Edema surrounding the pancreatic tail. Chest X-Ray 12/28/23 09:55 IMPRESSION: 1. No acute cardiopulmonary findings. Laboratory Results WBC 7.06 10^3/uL (3.29-11.43) 12/30/23 04:20 RBC 4.01 10^6/uL (3.85-5.65) 12/30/23 04:20 Hgb 12.80 g/dL (11.27-16.99) 12/30/23 04:20 Hct 37.5 % (36-47) 12/30/23 04:20 MCV 93.5 fl (85-98) 12/30/23 04:20 MCH 31.9 pg (27-33) 12/30/23 04:20 MCHC 34.1 g/dL (30-55) 12/30/23 04:20 RDW 15.3 % (12.1-15.1) H 12/30/23 04:20 Plt Count 111 10^3/cmm (157-399) L 12/30/23 04:20 MPV 12.3 fL (7.4-10.4) H 12/30/23 04:20 Neut % (Auto) 52.2 % 12/30/23 04:20 Lymph % (Auto) 31.6 % 12/30/23 04:20 [place] % (Auto) 13.7 % 12/30/23 04:20 Eos % (Auto) 1.1 % 12/30/23 04:20 Baso % (Auto) 0.6 % 12/30/23 04:20 Neut # (Auto) 3.68 10^3/uL (1.8-7.7) 12/30/23 04:20 Lymph # (Auto) 2.2 10^3/uL (0.8-4.8) 12/30/23 04:20 [place] # (Auto) 1.0 10^3/uL (0.2-0.9) H 12/30/23 04:20 Eos # (Auto) 0.1 10^3/uL (0.0-0.8) 12/30/23 04:20 Baso # (Auto) 0.0 10^3/uL (0.0-0.1) 12/30/23 04:20 Nucleated RBC % (auto) 0 % 12/30/23 04:20 Nucleated RBCs # 0.0 /100WBC 12/30/23 04:20 Sodium 138 mmol/L (136-145) 12/30/23 04:20 Potassium 3.8 mmol/L (3.5-5.1) 12/30/23 04:20 Chloride 101 mmol/L (98-107) 12/30/23 04:20 Carbon Dioxide 28 mmol/L (22-29) 12/30/23 04:20 Anion Gap 12.8 (5-19) 12/30/23 04:20 BUN 2 mg/dL (6-20) L 12/30/23 04:20 Creatinine 0.6 mg/dL (0.5-0.9) 12/30/23 04:20 GFR Calculation 121.8 mL/min (90-130) 12/30/23 04:20 Glucose 78 mg/dL (65-115) 12/30/23 04:20 Estimat Average Glucose 105 12/28/23 04:34 Hemoglobin A1c 5.3 % (4.0-6.0) 12/28/23 04:34 Calculated Osmolality 281 mOsm/kg (285-295) L 12/30/23 04:20 Calcium 9.1 mg/dL (8.5-10.5) 12/30/23 04:20 Phosphorus 3.3 mg/dL (2.5-4.5) 12/30/23 04:20 Magnesium 1.7 mg/dL (1.7-2.3) 12/30/23 04:20 Total Bilirubin 1.9 mg/dL (0.15-1.2) H 12/30/23 04:20 AST 67 U/L (0-32) H 12/30/23 04:20 ALT 62 U/L (0-33) H 12/30/23 04:20 Alkaline Phosphatase 156 U/L (35-105) H 12/30/23 04:20 Total Protein 6.9 g/dL (6.6-8.7) D 12/30/23 04:20 Albumin 3.1 g/dL (3.5-5.2) L 12/30/23 04:20 Globulin 3.8 g/dL (1.3-4.6) 12/30/23 04:20 Lipase 425 U/L (13-60) H 12/29/23 04:13 HCG, Qual Negative (Negative) 12/26/23 19:14 Urine Color Yellow (Yellow) 12/26/23 22:30 Urine Appearance Clear (CLEAR) 12/26/23 22:30 Urine pH 6.5 (5-7) 12/26/23 22:30 Ur Specific [place] 1.036 (1.005-1.030) H 12/26/23 22:30 Urine Protein Negative (Negative) 12/26/23 22:30 Urine Glucose (UA) Negative (Normal) 12/26/23 22:30 Urine Ketones Negative (Negative) 12/26/23 22:30 Urine Blood Negative (Negative) 12/26/23 22:30 Urine Nitrate Negative (Negative) 12/26/23 22:30 Urine Bilirubin Negative (Negative) 12/26/23 22:30 Urine Urobilinogen 1.0 mg/dL (Negative) 12/26/23 22:30 Ur Leukocyte Esterase Negative (Negative) 12/26/23 22:30 Urine RBC 0-2 /hpf (0-2) 12/26/23 22:30 Urine WBC 0-5 /hpf (0-5) 12/26/23 22:30 Ur Squamous Epith Cells 0-5 /hpf (0-5) 12/26/23 22:30 Amorphous Sediment Not Reportable 12/26/23 22:30 Urine Bacteria None seen /hpf (NONE) 12/26/23 22:30 Hyaline Casts 0-4 /lpf H 12/26/23 22:30 Ethyl Alcohol < 10 mg/dL (0-10) 12/26/23 19:14 Vitals Last Vital Signs Temp 98.0 F 12/30/23 07:49 Pulse 81 12/30/23 10:43 Resp 16 12/30/23 10:43 BP 130/81 12/30/23 07:49 Pulse Ox 98 12/30/23 10:43 O2 Del Method Room Air 12/30/23 10:43 Discharge Plan Discharge Patient Disposition: Home Condition: Stable Prescriptions: New oxycodone 5 mg Tablet 5 mg PO Q8H PRN (Reason: Moderate Pain) 5 Days Qty: 15 0RF multivitamin with folic acid [Thera] 400 mcg Tablet 1 tab PO DAILY 30 Days Qty: 30 0RF thiamine mononitrate (vit B1) [Vitamin B-1 (mononitrate)] 100 mg Tablet 100 mg PO DAILY 30 Days Qty: 30 0RF magnesium L-lactate [Magtab] 84 mg Tablet Extended Release 84 mg PO DAILY 3 Days Qty: 3 0RF Continued bupropion HCl 150 mg tablet sustained-release 12 hr 150 mg PO BID Rx Instructions: patient states I take it here and there when I feel like I need it. hydroxyzine HCl 25 mg tablet 25 mg PO Q4H PRN (Reason: Anxiety) Discharge Orders: Discharge Order (Routine); Ordered 12/30/23 Ordered By: Zi Kyle Referrals: Cory Judd MD [Primary Care Provider] - 01/03/24 3:00 pm Discharge Diet: Cardiac Discharge Activity: Resume usual activity Patient Instructions: Pancreatitis (DC), GI (Gastrointestinal) Soft Diet (DC), Opioid Safety Activity Restrictions/Additional Instructions: - Please have your primary care provider recheck your liver function in 1 week -Please abstain from alcohol consumption -GI soft diet for the next few days -Patient was advised to use oxycodone sparingly, do not drive, or drink, or work or operate heavy machinery while taking medication Discharge Attestations Time Spent in Discharge Care*: greater than 30 min Quality Metrics Clinical Quality Measures [ No reported AMI, CVA or VTE this stay] Coding Level of Care Code 25130 Total time (in minutes) for Discharge: 45 Diagnoses Pancreatitis K85.90 Alcohol abuse with withdrawal F10.139
== END 2023-12-30 11:30 | disposition home or self-care (01) | DRG 439 ==
LOC: ER 21:47 → MEDSURG 22:18
PROVIDERS: Emergency Medicine; Admitting Provider Internal Medicine; Emergency Provider Emergency Medicine; PCP Family Medicine; Visit Provider Family Medicine
DX: K85.20 Alcohol induced acute pancreatitis without necrosis or infection (principal); F10.139 Alcohol abuse with withdrawal, unspecified; F10.10 Alcohol abuse, uncomplicated; Y90.0 Blood alcohol level of less than 20 mg/100 ml; R25.1 Tremor, unspecified; E86.0 Dehydration
CPT/HCPCS: 36415; 71045; 74177; 76705; 80053; 80307; 81001; 83036; 83690; 83735; 84100; 84703; 85025; 94640; 94664; 96372; 96374; 96375; 99285; G0378; J1171; J1200; J1650; J2060; J2270; J2405; J2470; J2765; J3411; J3475; J7030; J7120

== ENCOUNTER 2024-05-11 08:22 | Observation (INO) | payer SELFPAY ==
[2024-05-11] VITALS (14 sets, daily range): BP systolic 145–159; BP diastolic 83–100; PULSE 43–89; RESP 11–22; TEMP 36.6–36.8; O2SAT 87–100; BMI 21.9
--- NOTE | 2024-05-11 08:34 | W.ED.ABDPA2 ---
HPI - Abdominal Pain General: Chief Complaint: Abdominal Pain Stated Complaint: abd pain Time Seen by Provider: 05/11/24 08:25 History of Present Illness: 23-year-old female with a history of alcoholism and pancreatitis who presents the emergency room with abdominal pain. She has had nausea and vomiting. Epigastric pain. Says she had started drinking again and when the symptoms of pancreatitis started 3 days ago she stopped drinking. Continues to have pain. Related Data Home Medications ?Medication ?Instructions ?Recorded ?Confirmed bupropion HCl 150 mg tablet,12 hr 150 mg PO BID 12/26/23 12/26/23 sustained-release hydroxyzine HCl 25 mg tablet 25 mg PO Q4H PRN Anxiety 12/26/23 12/26/23 Allergies Allergy/AdvReac Type Severity Reaction Status Date / Time No Known Allergies Allergy Verified 12/26/23 19:31 Review of Systems Narrative: Constitutional symptoms: Negative except as documented in HPI. Skin symptoms: Negative except as documented in HPI. Eye symptoms: Negative except as documented in HPI. ENMT symptoms: Negative except as documented in HPI. Respiratory symptoms: Negative except as documented in HPI. Cardiovascular symptoms: Negative except as documented in HPI. Gastrointestinal symptoms: Negative except as documented in HPI. Genitourinary symptoms: Negative except as documented in HPI. Musculoskeletal symptoms: Negative except as documented in HPI. Neurologic symptoms: Negative except as documented in HPI. Psychiatric symptoms: Negative except as documented in HPI. Endocrine symptoms: Negative except as documented in HPI. [facility] ED PFSH: Social History (Updated 12/26/23 @ 22:47 by Sarah Wooten RN) Smoking and tobacco/nicotine status: current every day tobacco/nicotine user cigarettes Packs smoked per day: 1 Years cigarettes smoked: 10 Alcohol intake: current Alcohol intake frequency: 3 or more drinks per day Alcohol type: beer and hard liquor Substance/Drug Use: current Substance/Drug use frequency: daily Physical Exam Narrative: EXAM NARRATIVE: General: Alert, no acute distress. Skin: Warm, dry. Head: Normocephalic, atraumatic. Neck: Supple, trachea midline. Eye: Extraocular movements are intact. Ears, nose, mouth and throat: mucosa moist. Cardiovascular: Regular, Normal peripheral perfusion. Respiratory: Lungs are clear to auscultation, respirations are non-labored, breath sounds are equal, Symmetrical chest wall expansion. Gastrointestinal: Soft, epigastric abdominal pain, Non distended Musculoskeletal: Normal ROM, no deformity. Neurological: Alert and oriented, No focal neurological deficit observed. Psychiatric: Cooperative, appropriate mood & affect. Course Vital Signs: Vital signs: Vital Signs Temperature 98.2 F 05/11/24 08:28 Pulse Rate 49 L 05/11/24 09:15 Respiratory Rate 22 H 05/11/24 09:15 Blood Pressure 154/100 05/11/24 09:15 Pulse Oximetry 100 05/11/24 09:15 Oxygen Delivery Me thod Room Air 05/11/24 08:28 MDM - Abdominal Pain Medical Decision Making Medical decision making: Differential diagnosis including but not limited to and based on the above HPI, review of systems and physical exam: In this patient with epigastric pain differential would include cholelithiasis or cholecystitis. Hepatitis. Diverticulitis. Constipation. UTI. colitis. small bowel obstruction. crohn's flare. pancreatitis. gastritis. peptic ulcer. also concern for acute cardiac event. Orders placed to evaluate differential diagnosis based on the above differential, HPI and physical exam Lab Review: Laboratory results were reviewed and interpreted by myself the emergency room physician. No leukocytosis. No anemia. No renal failure. Patient does again have an elevated lipase. Today is 452. Alcohol is negative. I reviewed the patient's medical record. Reexamination: Patient remained stable. No increased work of breathing. No altered mental status. No focal motor deficits. Patient was a bit resistant to being admitted but family insists that she needs to be and she finally agrees. Consultation: Spoke with Dr. Yue Li with the hospital service who agrees to admission to observation. Assessment and plan: Pancreatitis Alcohol abuse ?IV fluids, IV Zofran and IV morphine. -I discussed the patient with the hospitalist on-call who is admitting the patient. - Discussed findings and plan with patient. Answered any questions. - All laboratory values were reviewed and interpreted personally by myself, the ER physician - Evaluation and treatment of this problem were appropriate in the emergency setting Lab Data 05/11/24 08:38 05/11/24 08:38 Labs/Radiology: Laboratory Results WBC 7.93 10^3/uL (3.29-11.43) 05/11/24 08:38 RBC 4.55 10^6/uL (3.85-5.65) 05/11/24 08:38 Hgb 14.40 g/dL (11.27-16.99) 05/11/24 08:38 Hct 41.9 % (36-47) 05/11/24 08:38 MCV 92.1 fl (85-98) 05/11/24 08:38 MCH 31.6 pg (27-33) 05/11/24 08:38 MCHC 34.4 g/dL (30-55) 05/11/24 08:38 RDW 11.9 % (12.1-15.1) L 05/11/24 08:38 Plt Count 315 10^3/cmm (157-399) 05/11/24 08:38 MPV 9.2 fL (7.4-10.4) 05/11/24 08:38 Neut % (Auto) 71.2 % 05/11/24 08:38 Lymph % (Auto) 19.3 % 05/11/24 08:38 [place] % (Auto) 7.3 % 05/11/24 08:38 Eos % (Auto) 1.3 % 05/11/24 08:38 Baso % (Auto) 0.5 % 05/11/24 08:38 Neut # (Auto) 5.65 10^3/uL (1.8-7.7) 05/11/24 08:38 Lymph # (Auto) 1.5 10^3/uL (0.8-4.8) 05/11/24 08:38 [place] # (Auto) 0.6 10^3/uL (0.2-0.9) 05/11/24 08:38 Eos # (Auto) 0.1 10^3/uL (0.0-0.8) 05/11/24 08:38 Baso # (Auto) 0.0 10^3/uL (0.0-0.1) 05/11/24 08:38 Nucleated RBC % (auto) 0 % 05/11/24 08:38 Nucleated RBCs # 0.0 /100WBC 05/11/24 08:38 Sodium 138 mmol/L (136-145) 05/11/24 08:38 Potassium 3.9 mmol/L (3.5-5.1) 05/11/24 08:38 Chloride 101 mmol/L (98-107) 05/11/24 08:38 Carbon Dioxide 23 mmol/L (22-29) 05/11/24 08:38 Anion Gap 17.9 (5-19) 05/11/24 08:38 BUN 7 mg/dL (6-20) 05/11/24 08:38 Creatinine 0.7 mg/dL (0.5-0.9) 05/11/24 08:38 GFR Calculation 102.0 mL/min (90-130) 05/11/24 08:38 Glucose 122 mg/dL (65-115) H 05/11/24 08:38 Calculated Osmolality 285 mOsm/kg (285-295) 05/11/24 08:38 Calcium 9.4 mg/dL (8.5-10.5) 05/11/24 08:38 Total Bilirubin 0.7 mg/dL (0.15-1.2) 05/11/24 08:38 AST 42 U/L (0-32) H 05/11/24 08:38 ALT 25 U/L (0-33) 05/11/24 08:38 Alkaline Phosphatase 60 U/L (35-105) 05/11/24 08:38 Total Protein 8.1 g/dL (6.6-8.7) 05/11/24 08:38 Albumin 4.7 g/dL (3.5-5.2) 05/11/24 08:38 Globulin 3.4 g/dL (1.3-4.6) 05/11/24 08:38 Lipase 452 U/L (13-60) H 05/11/24 08:38 Ethyl Alcohol < 10 mg/dL (0-10) 05/11/24 08:38 No radiology studies performed this visit Discharge Plan Discharge Patient Disposition: Placed in Observation Clinical Impression: Pancreatitis 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
[2024-05-11 08:43] LABS: Basophils % 0.5 %; Eosinophils # 0.1 10^3/uL (0.0-0.8); Eosinophils % 1.3 %; Hematocrit 41.9 % (36-47); Lymphocytes # 1.5 10^3/uL (0.8-4.8); Lymphocytes % 19.3 %; Mean Corpuscular HGB Conc 34.4 g/dL (30-55); Mean Corpuscular Hemoglobin 31.6 pg (27-33); Mean Corpuscular Volume 92.1 fl (85-98); Mean Platelet Volume 9.2 fL (7.4-10.4); Monocytes # 0.6 10^3/uL (0.2-0.9); Monocytes % 7.3 %; Neutrophils # 5.65 10^3/uL (1.8-7.7); Neutrophils % 71.2 %; Nucleated Red Blood Cells % 0 %; Platelet Count 315 10^3/cmm (157-399); Red Blood Count 4.55 10^6/uL (3.85-5.65); Red Cell Distribution Width 11.9 % (12.1-15.1); White Blood Count 7.93 10^3/uL (3.29-11.43)
[2024-05-11] MEDS: sodium chloride 0.9% 1,000 ML 999 ML IV (08:57)
[2024-05-11] MEDS: ondansetron 2 mg/ML SDV 2 mL 8 MG IVP (08:58)
[2024-05-11 08:59] LABS: Alanine Aminotransferase 25 U/L (0-33); Albumin Level 4.7 g/dL (3.5-5.2); Alkaline Phosphatase 60 U/L (35-105); Anion Gap 17.9 (5-19); Aspartate Amino Transferase 42 U/L (0-32); Blood Urea Nitrogen 7 mg/dL (6-20); Calcium 9.4 mg/dL (8.5-10.5); Carbon Dioxide 23 mmol/L (22-29); Chloride 101 mmol/L (98-107); Globulin 3.4 g/dL (1.3-4.6); Glucose 122 mg/dL (65-115); Osmolality Calculated 285 mOsm/kg (285-295); Potassium 3.9 mmol/L (3.5-5.1); Sodium 138 mmol/L (136-145); Total Bilirubin 0.7 mg/dL (0.15-1.2); Total Protein 8.1 g/dL (6.6-8.7)
[2024-05-11 09:00] LABS: Alcohol Level < 10 mg/dL (0-10)
[2024-05-11 09:06] LABS: Lipase 452 U/L (13-60)
[2024-05-11] MEDS: morphine 4 mg/mL SDV 1 mL IVP (09:27)
[2024-05-11] MEDS: enoxaparin 40 mg/0.4 mL Syringe SUBCUT (10:28)
--- NOTE | 2024-05-11 11:51 | PC.CHAP ---
Pastoral Care Encounter/Spiritual Assessment Type of Contact [] Declined embroiderer hand visit [] Patient/Family/Request visit [] Outpatient visit [] Follow-up visit [] Physician referral [] Code/Alert [x] Routine visit [] Staff referral [] Actively dying [x] Patient sleeping [] Family support [] [] Out of room [] Palliative care [] [] Receiving care in room [] Pre-surgical visit [] Trauma [] Long length of stay [] ICU visit [] Other: Relational/Emotional Strength [] Patient feels connected with others/family/visitors/staff [] Distress [] Loneliness/isolation [] Abandonment Spirituality of Patient [] Person of Vania [] Attends Restoration of their Vania [] Believes in Prayer [] Reads Bible or Adventism materials [] There are Spiritual issues to be addressed Cherry Grower Interventions [] Prayer [] Active listening [] Non-anxious presence [] Spiritual/emotional support [] Crisis/trauma care [] Spiritual counseling [] Bereavement support [] Provided bereavement packet [] Provided Bible/devotional materials [] Provided toy/stuffed animal, coloring book to patient or family member [] Provided Communion [] Anointing/[employer] [] Salvation [] Completed spiritual assessment [] Other: Impact on Illness or Injury [] Angry [] Fearful [] Anxious [] Often cries [] Exhaustion [] Unable to work [] Unable to attend restorationist [] Unable to walk/stand [] Unable to read [] Unable to drive [] Unable to eat/drink [] Unable to sleep [] Unable to be with family [] Patient intubated [] Other: Summary Time spent with patient
--- NOTE | 2024-05-11 12:34 | P.HP_ITS ---
Providers/Chief Complaint 2 Admitting Physician: Yue Li Primary Care Provider: Cory Judd MD Chief Complaint: abd pain History of Present Illness 23 year old with past medical history of alcohol pancreatitis now presenting with a three-day history of abdominal pain, described as feeling like a cinder block on my pancreas in the epigastric region. The pain has been constant since onset and is currently rated 3-4/10. Associated symptoms include nausea and vomiting, with the last episode of emesis occurring around 5:00 AM this morning. Patient reports a prior episode of pancreatitis in December 2023. Patient reports that drinking water helps the pain. Patient reports waking up with a pain level of 9/10, which decreased to 7/10 upon arrival, and further decreased to 3/10 after receiving pain medication. Patient reports difficulty sleeping in bed due to pain, requiring use of a recliner. Patient also reports a history of heart palpitations and lightheadedness with exertion, experiencing visual disturbances described as seeing stars. Patient has experienced syncope in the past, with the last episode a couple of months prior to the previous pancreatitis episode. Patient denies seeking medical attention for these symptoms. Patient reports smoking less than a pack of cigarettes per day and consuming approximately 10 beers daily until three days ago when abdominal pain began. Patient noted tremors and a headache this morning. Patient reports taking hydroxyzine as needed for anxiety and recently completed a course of amoxicillin for a dental infection.Patient reports a history of collarbone surgery and a heart procedure at age [age] related to maternal smoking during . Patient denies current chest pain but reports intermittent palpitations. Upon arrival to ER he lipase level was noted to be 452. No imaging studies were done. Request observation for mild acute pancreatitis. Review of Systems 2 General: Reports: 10 or more systems reviewed and unremarkable except in HPI and below Medications/Allergies Home Medications ?Medication ?Instructions ?Recorded ?Confirmed ?Last Taken ?Type hydroxyzine HCl 25 mg tablet 25 mg PO Q4H PRN Anxiety 12/26/23 05/11/24 1 Day Ago History ~12/25/23 amoxicillin 500 mg tablet 500 mg PO TID 05/11/2405/1105/10/24 History Allergies Allergy/AdvReac Type Severity Reaction Status Date / Time No Known Allergies Allergy Verified 12/26/23 19:31 PFSH Acute 2 PFSH: Social History (Updated 12/26/23 @ 22:47 by Sarah Wooten RN) Smoking and tobacco/nicotine status: current every day tobacco/nicotine user cigarettes Packs smoked per day: 1 Years cigarettes smoked: 10 Alcohol intake: current Alcohol intake frequency: 3 or more drinks per day Alcohol type: beer and hard liquor Substance/Drug Use: current Substance/Drug use frequency: daily Vitals/I&O/Wt Last Vital Signs Temp 98.2 F 05/11/24 08:28 Pulse 53 L 05/11/24 11:26 Resp 16 05/11/24 11:10 BP 146/83 05/11/24 11:26 Pulse Ox 95 05/11/24 11:26 O2 Del Method Room Air 05/11/24 11:42 05/10/24 05/11/24 05/11/24 22:59 06:59 14:59 Intake Total 1000 / 1000 Balance 1000 / 1000 Weight last 48 hrs Weight 63.503 kg Weight 63.503 kg Physical Exam 2 Narrative: Constitutional: Alert and oriented. Cardiovascular: Bradycardia Pulmonary: Clear to auscultation bilaterally. Abdomen: Mild tenderness to palpation in the epigastric region. No rebound or guarding. Extremities: No edema. Data 05/11/24 08:38 05/11/24 08:38 A&P Assessment and plan (1) Pancreatitis: (2) Bradycardia: Plan Acute Pancreatitis - Patient presents with classic symptoms of epigastric pain, nausea, and vomiting. - History of a previous episode in December 2023. - Likely alcohol-induced given reported heavy alcohol consumption. Differential Diagnosis: 1. Alcohol-induced pancreatitis 2. Gallstone pancreatitis ( less likely as she did have a gallbladder US in 2023) Plan: 1. Clear liquid diet, will slowly advance as tolerated. 2. IV fluids for hydration. 3. Pain management 4. Monitor for improvement in symptoms. 5. Educate on the importance of alcohol cessation. Alcohol Use Disorder with Recent Cessation - Reports drinking approximately 10 beers daily until three days ago. - Noted mild withdrawal symptoms, including tremors and headache. Plan: 1. Monitor for worsening withdrawal symptoms. 2. Consider CIWA protocol if symptoms progress. 3. Provide resources for alcohol cessation support upon discharge. Bradycardia / Hx of Syncope - Heart rate noted to be low (48-49 bpm). - Patient reports a history of palpitations and syncope associated with exertion. Plan: 1. Continuous telemetry monitoring. 2. Echocardiogram to evaluate cardiac function. 3. Consider outpatient Holter monitor if symptoms persist. Tobacco abuse - Nicotine patch DVT ppx - Lovenox PDMP PDMP Reviewed: Not Reviewed Attestations 2 Medical Necessity Statement*: Anticipate less than 2 midnight stay Coding Level of Care Code Acute Code for Chg Fwd Diagnoses Pancreatitis K85.90 Bradycardia R00.1
--- NOTE | 2024-05-11 12:40 | USCV_ITS ---
Lydia Adam Age: 23 Gender: F : 2000 Exam Date: 05/11/2024 13:58 Ordering Phys: Yue Li MD Technologist: Trav Cheek Exam Location: [facility] [place] Indication: bradycardia BP: 146 / 83 HR: 45 Rhythm: Sinus Technical Quality: Adequate MEASUREMENTS (Male / Female) Normal Values 2D ECHO LV Diastolic Diameter PLAX 4.6 cm 4.2 - 5.9 / 3.9 - 5.3 cm IVS Diastolic Thickness 1.2 cm 0.6 - 1.0 / 0.6 - 0.9 cm IVS Systolic Thickness 1.6 cm LVPW Diastolic Thickness 1.1 cm 0.6 - 1.0 / 0.6 - 0.9 cm LVPW Systolic Thickness 1.7 cm LVOT Diameter 2.0 cm LV Ejection Fraction 2D Teich 75.1 % LV Ejection Fraction MOD 4C 69.0 % LV Ejection Fraction MOD 2C 69.9 % LV Ejection Fraction 2C AL 70.6 % LA Diameter 3.2 cm RA Systolic Volume 4C AL 28.7 ml RA Systolic Volume 4C MOD 29.1 ml LA Sys Volume AL 44.6 cm cubed LA Sys Volume Index AL 25.7 cm cubed/m squared Aorta at Sinotubular Diameter 1.7 cm IVC Diameter 2.0 cm M-MODE LA Ao Ratio MM 1.4 AV Cusp Separation MM 1.5 cm DOPPLER AV Peak Velocity 144.0 cm/s LVOT Peak Velocity 87.0 cm/s AV Area Cont Eq vti 2.2 cm squared AV Area Cont Eq pk 1.9 cm squared MV Peak Velocity 115.0 cm/s MV Area PHT 5.6 cm squared Mitral E to A Ratio 1.9 TV Peak Velocity 293.5 cm/s TR Peak Velocity 332.0 cm/s TR Peak Gradient 44.1 mmHg TR Mean Velocity 250.0 cm/s TR Mean Gradient 28.4 mmHg TR Velocity Time Integral 99.9 cm PV Peak Velocity 97.7 cm/s RV Ejection Time 0.3 s FINDINGS Left Ventricle Left ventricle is normal in size. LV systolic function is normal with EF of 55-60%. No regional wall motion abnormalities are seen. Right Ventricle Normal in size and function Right Atrium Normal in size Left Atrium Normal in size Mitral Valve Structurally normal mitral valve. Trace mitral regurgitation. Aortic Valve Not well visualized. No significant stenosis or regurgitation. Tricuspid Valve Mild tricuspid regurgitation. Insufficient TR jet to evaluate RVSP Pulmonic Valve Trace pulmonic regurgitation. Pericardium Normal Aorta Normal in size IVC Appears to be normal CONCLUSIONS LV systolic function is normal with EF of 55-60% Trace mitral regurgitation Mild tricuspid regurgitation Trace pulmonic regurgitation. No comparison studies are available. Manny Briceno MD (Electronically Signed) Final Date: 12 May 2024 11:14 S
[2024-05-11] MEDS: nicotine 14 mg Patch 1 PATCH TRANSDERMA (13:31)
[2024-05-11] MEDS: lactated ringers 1,000 ML 100 ML IV ×2 (13:31→22:24)
[2024-05-11] MEDS: thiamine 100 mg/mL 2mL SDV IM (13:33)
--- NOTE | 2024-05-11 13:51 | ECG_ITS ---
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2000 Requested By: Yue Li Order Number: [id number] Milo MD: OSVALDO ROSARIO Measurements Intervals [place] Rate: 45 P: 48 OK: 145 QRS: 81 QRSD: 116 T: 76 QT: 517 QTc: 452 Interpretive Statements SINUS BRADYCARDIA MODERATE INTRAVENTRICULAR CONDUCTION DELAY [110+ ms QRS DURATION] PROLONGED QT INTERVAL Compared to ECG 01/22/2023 01:04:34 Intraventricular conduction delay now present Prolonged QT interval now present Sinus rhythm no longer present Incomplete right bundle-branch block no longer present Left posterior fascicular block no longer present Electronically Signed On 05-19-2024 21:46:49 CDT by OSVALDO ROSARIO [email or web address]
[2024-05-11] MEDS: oxyCODONE 5 mg IR Tab/Cap PO (16:05)
[2024-05-11] MEDS: trazodone 50 mg Tablet PO (20:58)
[2024-05-12] VITALS (7 sets, daily range): BP systolic 131–143; BP diastolic 84–89; PULSE 49–62; RESP 16–21; TEMP 36.5–36.8; O2SAT 96–99
[2024-05-12 05:25] LABS: Basophils % 0.5 %; Eosinophils # 0.1 10^3/uL (0.0-0.8); Eosinophils % 2.2 %; Hematocrit 38.4 % (36-47); Lymphocytes # 1.7 10^3/uL (0.8-4.8); Lymphocytes % 27.6 %; Mean Corpuscular HGB Conc 32.8 g/dL (30-55); Mean Corpuscular Hemoglobin 31.3 pg (27-33); Mean Corpuscular Volume 95.5 fl (85-98); Mean Platelet Volume 9.7 fL (7.4-10.4); Monocytes # 0.6 10^3/uL (0.2-0.9); Monocytes % 8.9 %; Neutrophils # 3.81 10^3/uL (1.8-7.7); Neutrophils % 60.5 %; Nucleated Red Blood Cells % 0 %; Platelet Count 253 10^3/cmm (157-399); Red Blood Count 4.02 10^6/uL (3.85-5.65); Red Cell Distribution Width 11.9 % (12.1-15.1)
[2024-05-12 05:41] LABS: Anion Gap 12.7 (5-19); Blood Urea Nitrogen 4 mg/dL (6-20); Calcium 8.6 mg/dL (8.5-10.5); Carbon Dioxide 24 mmol/L (22-29); Chloride 105 mmol/L (98-107); Creatinine Clr Calc Pharmacy 141.1067; Glomerular Filtration Rate 121.8 mL/min (90-130); Glucose 88 mg/dL (65-115); Osmolality Calculated 282 mOsm/kg (285-295); Potassium 3.7 mmol/L (3.5-5.1); Sodium 138 mmol/L (136-145)
[2024-05-12] MEDS: oxyCODONE 5 mg IR Tab/Cap PO (07:32)
[2024-05-12] MEDS: nicotine 14 mg Patch 1 PATCH TRANSDERMA (08:44)
[2024-05-12] MEDS: multivitamin therapeutic Tablet 1 TAB PO (08:46)
[2024-05-12] MEDS: thiamine 100 mg Tablet PO (08:46)
[2024-05-12] MEDS: lactated ringers 1,000 ML 100 ML IV (08:46)
[2024-05-12] MEDS: folic acid 1 mg Tablet PO (08:46)
--- NOTE | 2024-05-12 19:06 | PC.NURSE ---
Education provided at [facility]- Pt was educated on the risks of leaving before heart monitor could be obtained. Pt understood risks and all questions were answered.
--- NOTE | 2024-05-17 13:48 | P.DS_ITS ---
Discharge Providers Date of Admission: 05/11/24 09:20 Date of Discharge: 05/12/2024 Attending Provider at Admission: Yue Li Attending Provider at Discharge: Yue Li Primary Care Provider: Cory Judd MD Diagnoses at Discharge Discharge Diagnosis (1) Pancreatitis: Status: Resolved (2) Bradycardia: Status: Acute Reason for Visit Reason for Visit: abd pain Hospital Course Hospital Course 23 year old with past medical history of alcohol pancreatitis now presenting with a three-day history of abdominal pain, described as feeling like a cinder block on my pancreas in the epigastric region. The pain has been constant since onset and is currently rated 3-4/10. Associated symptoms include nausea and vomiting, with the last episode of emesis occurring around 5:00 AM this morning. Patient reports a prior episode of pancreatitis in December 2023. Patient reports that drinking water helps the pain. Patient reports waking up with a pain level of 9/10, which decreased to 7/10 upon arrival, and further decreased to 3/10 after receiving pain medication. Patient reports difficulty sleeping in bed due to pain, requiring use of a recliner. Patient also reports a history of heart palpitations and lightheadedness with exertion, experiencing visual disturbances described as seeing stars. Patient has experienced syncope in the past, with the last episode a couple of months prior to the previous pancreatitis episode. Patient denies seeking medical attention for these symptoms. Patient reports smoking less than a pack of cigarettes per day and consuming approximately 10 beers daily until three days ago when abdominal pain began. Patient noted tremors and a headache this morning. Patient reports taking hydroxyzine as needed for anxiety and recently completed a course of amoxicillin for a dental infection. Patient reports a history of collarbone surgery and a heart procedure at age [age] related to maternal smoking during . Patient denies current chest pain but reports intermittent palpitations. Upon arrival to ER her lipase level was noted to be 452. No imaging studies were done. Request observation for mild acute pancreatitis. Patient was back to [facility] and tolerated oral intake. I had discussed with cardiology who had recommended exercise stress test given her history of syncopal event and now bradycardia in addition to event monitor. This was explained to patient. Given her weekend admission she would have to remain in hospital to obtain this however patient declined. Stated she had plan and despite risk would contact her PCP and coordinate outpatient follow up and further diagnostic testing. Physical Exam Narrative: Constitutional: Alert and oriented. Cardiovascular: Bradycardia Pulmonary: Clear to auscultation bilaterally. Abdomen: Non-tender. No rebound or guarding. Extremities: No edema. Discharge Data Studies Completed and Pending Completed Studies During Hospitalization Category Date Time Status CV. echo complete* [id number] Routine Ultrasound 05/11/24 12:40 Completed Laboratory Results WBC 6.30 10^3/uL (3.29-11.43) 05/12/24 04:44 RBC 4.02 10^6/uL (3.85-5.65) 05/12/24 04:44 Hgb 12.60 g/dL (11.27-16.99) 05/12/24 04:44 Hct 38.4 % (36-47) 05/12/24 04:44 MCV 95.5 fl (85-98) 05/12/24 04:44 MCH 31.3 pg (27-33) 05/12/24 04:44 MCHC 32.8 g/dL (30-55) 05/12/24 04:44 RDW 11.9 % (12.1-15.1) L 05/12/24 04:44 Plt Count 253 10^3/cmm (157-399) 05/12/24 04:44 MPV 9.7 fL (7.4-10.4) 05/12/24 04:44 Neut % (Auto) 60.5 % 05/12/24 04:44 Lymph % (Auto) 27.6 % 05/12/24 04:44 [place] % (Auto) 8.9 % 05/12/24 04:44 Eos % (Auto) 2.2 % 05/12/24 04:44 Baso % (Auto) 0.5 % 05/12/24 04:44 Neut # (Auto) 3.81 10^3/uL (1.8-7.7) 05/12/24 04:44 Lymph # (Auto) 1.7 10^3/uL (0.8-4.8) 05/12/24 04:44 [place] # (Auto) 0.6 10^3/uL (0.2-0.9) 05/12/24 04:44 Eos # (Auto) 0.1 10^3/uL (0.0-0.8) 05/12/24 04:44 Baso # (Auto) 0.0 10^3/uL (0.0-0.1) 05/12/24 04:44 Nucleated RBC % (auto) 0 % 05/12/24 04:44 Nucleated RBCs # 0.0 /100WBC 05/12/24 04:44 Sodium 138 mmol/L (136-145) 05/12/24 04:44 Potassium 3.7 mmol/L (3.5-5.1) 05/12/24 04:44 Chloride 105 mmol/L (98-107) 05/12/24 04:44 Carbon Dioxide 24 mmol/L (22-29) 05/12/24 04:44 Anion Gap 12.7 (5-19) 05/12/24 04:44 BUN 4 mg/dL (6-20) L 05/12/24 04:44 Creatinine 0.6 mg/dL (0.5-0.9) 05/12/24 04:44 GFR Calculation 121.8 mL/min (90-130) 05/12/24 04:44 Glucose 88 mg/dL (65-115) 05/12/24 04:44 Calculated Osmolality 282 mOsm/kg (285-295) L 05/12/24 04:44 Calcium 8.6 mg/dL (8.5-10.5) 05/12/24 04:44 Total Bilirubin 0.7 mg/dL (0.15-1.2) 05/11/24 08:38 AST 42 U/L (0-32) H 05/11/24 08:38 ALT 25 U/L (0-33) 05/11/24 08:38 Alkaline Phosphatase 60 U/L (35-105) 05/11/24 08:38 Total Protein 8.1 g/dL (6.6-8.7) 05/11/24 08:38 Albumin 4.7 g/dL (3.5-5.2) 05/11/24 08:38 Globulin 3.4 g/dL (1.3-4.6) 05/11/24 08:38 Lipase 452 U/L (13-60) H 05/11/24 08:38 Ethyl Alcohol < 10 mg/dL (0-10) 05/11/24 08:38 Vitals Last Vital Signs Temp 97.9 F 05/12/24 13:31 Pulse 54 L 03/30/25 13:31 Resp 16 05/12/24 13:31 BP 133/85 05/12/24 13:31 Pulse Ox 99 05/12/24 13:31 O2 Del Method Room Air 05/12/24 11:23 Discharge Plan Discharge Patient Disposition: Home Condition: Stable Prescriptions: Discontinued hydroxyzine HCl 25 mg tablet 25 mg PO Q4H PRN (Reason: Anxiety) amoxicillin 500 mg tablet 500 mg PO TID Discharge Orders: Discharge Order (Routine); Ordered 05/12/24 Ordered By: Yue Li Referrals: Cory Judd MD [Primary Care Provider] - 4-7 days (Please call your primary care provider tomorrow to make follow up appointment within 4-7 days.) Manny Briceno M.D [Physician] - 1 week (We have notified Dr. Briceno's clinic of the need for a follow-up appointment to be scheduled. If you have not heard from them within the next 2 business days, please call them directly. ) Discharge Diet: As Directed Discharge Activity: Increase activity as tolerated Patient Instructions: Pancreatitis (DC), Opioid Safety Activity Restrictions/Additional Instructions: Return to hospital if any lightheadedness, dizziness, chest pain, shortness of breath or syncopal event. Discharge Attestations Time Spent in Discharge Care*: greater than 30 min Status at Discharge: Cognitive status at discharge: cognitively intact , Behavioral status at discharge: cooperative , Functional status at discharge: independent ambulation , Overall status at discharge: patient is back to baseline Quality Metrics Clinical Quality Measures [ No reported AMI, CVA or VTE this stay] Coding Level of Care Code Acute Code for Chg Fwd Diagnoses Pancreatitis K85.90 Bradycardia R00.1
== END 2024-05-12 13:35 | disposition home or self-care (01) ==
LOC: ER 09:21 → MEDSURG 11:26
PROVIDERS: Admitting Provider Hospitalist; Emergency Provider Emergency Medicine; PCP Family Medicine; Visit Provider Hospitalist
DX: K85.90 Acute pancreatitis without necrosis or infection, unspecified (principal); R00.1 Bradycardia, unspecified; F17.210 Nicotine dependence, cigarettes, uncomplicated; F10.20 Alcohol dependence, uncomplicated
CPT/HCPCS: 36415; 80048; 80053; 80307; 83690; 85025; 93005; 93306; 96372; 96374; 96375; 96376; 99285; G0378; J1650; J2270; J2405; J3411; J7030; J7120; J9999

== ENCOUNTER 2024-06-12 06:58 | Observation (INO) | payer OTHER, SELFPAY ==
[2024-06-12] VITALS (13 sets, daily range): BP systolic 144–180; BP diastolic 82–111; PULSE 43–59; RESP 16–24; TEMP 36.4–36.9; O2SAT 100; BMI 21.9; BMI 24.8
--- NOTE | 2024-06-12 07:01 | ED_ITS ---
HPI - General Adult 2 General: Chief complaint: Abdominal Pain Stated complaint: abd pain Time Seen by Provider: 06/12/24 06:58 History of Present Illness: 23-year-old female presenting with several days of right upper quadrant pain. She describes it as a 10 out of 10. She has associated nausea and vomiting. Her last drink was 2 days ago 3 whiskey use and 4 beers. She has a known history of pancreatitis. She does not take any medications. Patient has noticed some tremors. No hematemesis no coffee-ground emesis Associated symptoms: Reports nausea and vomiting; Deny chest pain, dyspnea or rash Related Data Home Medications ?Medication ?Instructions ?Recorded ?Confirmed No Known Home Medications 06/12/2405/16 Allergies Allergy/AdvReac Type Severity Reaction Status Date / Time No Known Allergies Allergy Verified 06/12/24 07:16 Review of Systems 2 Const: Denies: fever(s) or chills Card: Denies: chest pain Resp: Denies: dyspnea GI: Reports: abdominal pain, nausea and vomiting; Denies: hematemesis, coffee ground emesis or diarrhea : Denies: dysuria, urinary frequency or urinary urgency Musc: Denies: neck pain or back pain Skin/Breast: Denies: rash PFSH ED 2 PFSH: Medical History (Updated 06/12/24 @ 11:21 by Osiel Osorio DO) Palpitations Pancreatitis Social History Smoking and tobacco/nicotine status: current every day tobacco/nicotine user cigarettes Packs smoked per day: 1 Years cigarettes smoked: 10 Alcohol intake: current Alcohol intake frequency: 3 or more drinks per day Alcohol type: beer and hard liquor Substance/Drug Use: current Substance/Drug use frequency: daily Physical Exam 2 Const: GENERAL APPEARANCE: cooperative ORIENTATION/CONSCIOUSNESS: Yes awake, Yes oriented to person, Yes oriented to place and Yes oriented to time HENMT: COMMON NORMALS: normocephalic, atraumatic and hearing grossly normal bilaterally HEAD & SCALP: normocephalic and atraumatic Resp: COMMON NORMALS: normal respiratory effort, No retractions, No use of accessory muscles and clear to auscultation bilaterally AUSCULTATION: clear to auscultation bilaterally Cardio: COMMON NORMALS: regular rate, regular rhythm and No murmurs present (Cardio) RATE: regular rate RHYTHM: regular rhythm GI: COMMON NORMALS: Normal to inspection, nondistended, normoactive bowel sounds present, Soft to palpation and No hepatosplenomegaly present A USCULTATION: Yes normoactive bowel sounds PALPATION: Yes Soft to palpation, Yes Tenderness to palpation present (GI) Details: RUQ, Yes Guarding due to palpation present (GI) and Yes No hepatosplenomegaly present Extremity: COMMON NORMALS: normal to inspection, capillary refill normal, no clubbing, cyanosis or edema, no calf tenderness and no pedal edema Neuro: SENSORIUM/ORIENTATION: Yes oriented to person, Yes oriented to place and Yes oriented to time Skin: COMMON NORMALS: no rashes or lesions noted GENERAL SKIN EXAM: no rashes or lesions noted Course 2 Vital Signs: Vital signs: Vital Signs Temperature 97.5 F L 06/12/24 07:06 Pulse Rate 43 L 06/12/24 10:39 Respiratory Rate 18 06/12/24 10:19 Blood Pressure 166/94 06/12/24 10:39 Pulse Oximetry 100 06/12/24 10:39 Oxygen Delivery Me thod Room Air 06/12/24 10:54 MDM - General Adult Medical Decision Making Acute alcoholic pancreatitis with significant amount of abdominal discomfort there is inflammation enough adjacent to the pancreas that is affecting a loop of bowel. Patient is given Protonix will start on a CIWA protocol keep her n.p.o. she is mildly hypokalemic we will start IV fluids with potassium supplement discussed with hospitalist will admit Medical Records I reviewed the patient's medical records. Lab Data I reviewed the patient's lab results. 06/12/24 07:23 06/12/24 07:23 Radiology Impressions Abdomen/Pelvis CT 06/12/24 07:34 IMPRESSION: 1. Acute pancreatitis involving the pancreatic tail with no associated pseudocyst. No hemorrhagic necrosis. 2. Associated LEFT upper quadrant circumferential jejunal wall thickening. Probably a sympathetic reaction to the adjacent acute pancreatitis. 3. Negative gallbladder. No intrahepatic duct dilatation. 4. Small amount of free fluid in the pelvis. Laboratory Results WBC 9.40 10^3/uL (3.29-11.43) 06/12/24 07:23 RBC 4.66 10^6/uL (3.85-5.65) 06/12/24 07:23 Hgb 14.80 g/dL (11.27-16.99) 06/12/24 07:23 Hct 43.2 % (36-47) 06/12/24 07:23 MCV 92.7 fl (85-98) 06/12/24 07:23 MCH 31.8 pg (27-33) 06/12/24 07:23 MCHC 34.3 g/dL (30-55) 06/12/24 07:23 RDW 11.9 % (12.1-15.1) L 06/12/24 07:23 Plt Count 287 10^3/cmm (157-399) 06/12/24 07:23 MPV 9.8 fL (7.4-10.4) 06/12/24 07:23 Neut % (Auto) 79.3 % 06/12/24 07:23 Lymph % (Auto) 14.3 % 06/12/24 07:23 [place] % (Auto) 5.7 % 06/12/24 07:23 Eos % (Auto) 0.1 % 06/12/24 07:23 Baso % (Auto) 0.3 % 06/12/24 07:23 Neut # (Auto) 7.45 10^3/uL (1.8-7.7) 06/12/24 07:23 Lymph # (Auto) 1.3 10^3/uL (0.8-4.8) 06/12/24 07:23 [place] # (Auto) 0.5 10^3/uL (0.2-0.9) 06/12/24 07:23 Eos # (Auto) 0.0 10^3/uL (0.0-0.8) 06/12/24 07:23 Baso # (Auto) 0.0 10^3/uL (0.0-0.1) 06/12/24 07:23 Nucleated RBC % (auto) 0 % 06/12/24 07:23 Nucleated RBCs # 0.0 /100WBC 06/12/24 07:23 Sodium 136 mmol/L (136-145) 06/12/24 07:23 Potassium 3.4 mmol/L (3.5-5.1) L 06/12/24 07:23 Chloride 98 mmol/L (98-107) 06/12/24 07:23 Carbon Dioxide 21 mmol/L (22-29) L 06/12/24 07:23 Anion Gap 20.4 (5-19) H 06/12/24 07:23 BUN 10 mg/dL (6-20) 06/12/24 07:23 Creatinine 0.6 mg/dL (0.5-0.9) 06/12/24 07:23 GFR Calculation 121.8 mL/min (90-130) 06/12/24 07:23 Glucose 106 mg/dL (65-115) 06/12/24 07:23 Calculated Osmolality 281 mOsm/kg (285-295) L 06/12/24 07:23 Calcium 9.5 mg/dL (8.5-10.5) 06/12/24 07:23 Total Bilirubin 1.5 mg/dL (0.15-1.2) H 06/12/24 07:23 AST 35 U/L (0-32) H 06/12/24 07:23 ALT 24 U/L (0-33) 06/12/24 07:23 Alkaline Phosphatase 74 U/L (35-105) 06/12/24 07:23 Total Protein 8.1 g/dL (6.6-8.7) 06/12/24 07:23 Albumin 4.5 g/dL (3.5-5.2) 06/12/24 07:23 Globulin 3.6 g/dL (1.3-4.6) 06/12/24 07:23 Triglycerides 201 mg/dL (0-150) H 06/12/24 07:23 Lipase 363 U/L (13-60) H 06/12/24 07:23 HCG, Qual Negative (Negative) 06/12/24 07:23 Urine Color Dark yellow (Yellow) A 06/12/24 07:20 Urine Appearance Cloudy (CLEAR) A 06/12/24 07:20 Urine pH 6.0 (5-7) 06/12/24 07:20 Ur Specific [place] 1.018 (1.005-1.030) 06/12/24 07:20 Urine Protein 1+ (Negative) A 06/12/24 07:20 Urine Glucose (UA) Negative (Normal) 06/12/24 07:20 Urine Ketones 1+ (Negative) H 06/12/24 07:20 Urine Blood Negative (Negative) 06/12/24 07:20 Urine Nitrate Negative (Negative) 06/12/24 07:20 Urine Bilirubin Negative (Negative) 06/12/24 07:20 Urine Urobilinogen 1.0 mg/dL (Negative) 06/12/24 07:20 Ur Leukocyte Esterase Trace (Negative) A 06/12/24 07:20 Urine RBC None /hpf (0-2) 06/12/24 07:20 Urine WBC 0-4 /hpf (0-5) H 06/12/24 07:20 Ur Squamous Epith Cells 5-10 /hpf (0-5) H 06/12/24 07:20 Amorphous Sediment Not Reportable 06/12/24 07:20 Urine Bacteria 1+ /hpf (NONE) H 06/12/24 07:20 Fine Granular Casts 0-4 /lpf H 06/12/24 07:20 All radiology interpretation(s) finalized by discharge Discharge Plan Discharge Patient Disposition: Admitted As Inpatient Admit Provider: Jose Guadarrama Clinical Impression: Pancreatitis, Hypokalemia, History of alcohol abuse Condition: Stable Coding Level of Care Code ED [employer] for [employer]
[2024-06-12 07:32] LABS: Basophils % 0.3 %; Eosinophils % 0.1 %; Hematocrit 43.2 % (36-47); Lymphocytes # 1.3 10^3/uL (0.8-4.8); Lymphocytes % 14.3 %; Mean Corpuscular HGB Conc 34.3 g/dL (30-55); Mean Corpuscular Hemoglobin 31.8 pg (27-33); Mean Corpuscular Volume 92.7 fl (85-98); Mean Platelet Volume 9.8 fL (7.4-10.4); Monocytes # 0.5 10^3/uL (0.2-0.9); Monocytes % 5.7 %; Neutrophils # 7.45 10^3/uL (1.8-7.7); Neutrophils % 79.3 %; Nucleated Red Blood Cells % 0 %; Platelet Count 287 10^3/cmm (157-399); Red Blood Count 4.66 10^6/uL (3.85-5.65); Red Cell Distribution Width 11.9 % (12.1-15.1)
--- NOTE | 2024-06-12 07:34 | CT_ITS ---
WS: [id number] CT ABDOMEN AND PELVIS WITH CONTRAST HISTORY: abd pain, nausea and vomiting. TECHNIQUE: Imaging performed of the abdomen and pelvis with IV contrast. Single phase imaging of the abdomen. Coronal and sagittal reformats are submitted. All CT scans at [facility] use at least one of these dose optimization techniques: automated exposure control; mA and/or kV adjustment per patient size (includes targeted exams where dose is matched to clinical indication); or iterative reconstruction. IV CONTRAST: Omnipaque 350; 100 mL IV. Oral contrast: No DLP: 374.33 mGy.cm COMPARISON: 12/26/2023 Lower thorax: Lung bases are clear. Heart is normal size. Small hiatal hernia. Liver/biliary system: Normal size liver. Focal fatty sparing along the falciform ligament. No duct dilatation. Gallbladder: Normal. No gallstones or wall thickening. No pericholecystic fluid. Pancreas: Head and body of the pancreas are normal. No duct dilatation. Moderate amount of inflammation surrounding the pancreatic tail. No fluid collection. Spleen: Normal size spleen. No mass or infarct. Adrenal glands: Normal. Right kidney: Normal. Left kidney: Normal. Aorta: Normal. Lymphadenopathy: Small retroperitoneal lymph nodes. Free fluid: Small amount of free fluid in the pelvis. GI tract: Stomach is not distended. Proximal jejunal loops are circumferentially thickened although there is no obstruction. These jejunal loops are closely associated with the inflammatory process associated with the pancreas. No appendicitis. Abdominal wall: Unremarkable abdominal wall. No hernia. Pelvis: Small amount of free fluid in the pelvis. Uterus is midline and normal size. 1.6 cm corpus luteal cyst LEFT ovary. Bones: Unremarkable. CT/CT abdomen pelvis w con* [id number] IMPRESSION: 1. Acute pancreatitis involving the pancreatic tail with no associated pseudoc yst. No hemorrhagic necrosis. 2. Associated LEFT upper quadrant circumferential jejunal wall thickening. Pro bably a sympathetic reaction to the adjacent acute pancreatitis. 3. Negative gallbladder. No intrahepatic duct dilatation. 4. Small amount of free fluid in the pelvis.
[2024-06-12] MEDS: ondansetron 2 mg/ML SDV 2 mL 4 MG IVP ×2 (07:42→10:15)
[2024-06-12] MEDS: pantoprazole 40 mg SDV 80 MG IVP (07:42)
[2024-06-12] MEDS: sodium chloride 0.9% 1,000 ML 999 ML IV ×2 (07:44→08:07)
[2024-06-12 07:48] LABS: Alanine Aminotransferase 24 U/L (0-33); Albumin Level 4.5 g/dL (3.5-5.2); Alkaline Phosphatase 74 U/L (35-105); Aspartate Amino Transferase 35 U/L (0-32); Blood Urea Nitrogen 10 mg/dL (6-20); Calcium 9.5 mg/dL (8.5-10.5); Carbon Dioxide 21 mmol/L (22-29); Chloride 98 mmol/L (98-107); Creatinine Clr Calc Pharmacy 141.1067; Globulin 3.6 g/dL (1.3-4.6); Glomerular Filtration Rate 121.8 mL/min (90-130); Glucose 106 mg/dL (65-115); HCG, Serum Qual Negative (Negative); Osmolality Calculated 281 mOsm/kg (285-295); Sodium 136 mmol/L (136-145); Total Bilirubin 1.5 mg/dL (0.15-1.2); Total Protein 8.1 g/dL (6.6-8.7)
[2024-06-12 08:13] LABS: Lipase 363 U/L (13-60)
[2024-06-12 08:14] LABS: Anion Gap 20.4 (5-19); Potassium 3.4 mmol/L (3.5-5.1)
[2024-06-12 08:14] LABS: Bilirubin Urine Negative (Negative); Blood Urine Negative (Negative); Glucose Urine UA Negative (Normal); Ketones Urine 1+ (Negative); Leukocyte Esterase Urine Trace (Negative); Nitrate Urine Negative (Negative); Protein Urine 1+ (Negative); Specific Gravity, Urine 1.018 (1.005-1.030); Urine Appearance Cloudy (CLEAR); Urine Color Dark Yellow (Yellow)
[2024-06-12 08:25] LABS: Add Urine Microscopic? YES
[2024-06-12 08:32] LABS: Bacteria Urine 1+ /hpf; UA Manual Slide Review YES; WBC Urine 0-4 /hpf (0-5)
[2024-06-12 08:33] LABS: Add Urine Culture? No; Fine Granular Casts Urine 0-4 /lpf
[2024-06-12] MEDS: iohexol 350 mg/mL 500 mL Btl (per mL) IV (08:51)
[2024-06-12] MEDS: morphine 4 mg/mL SDV 1 mL IVP ×3 (10:18→19:42)
[2024-06-12 10:27] LABS: Triglycerides 201 mg/dL (0-150)
--- NOTE | 2024-06-12 11:10 | P.HP_ITS ---
Providers/Chief Complaint 2 Admitting Physician: Jose Guadarrama Primary Care Provider: Cory Judd MD Chief Complaint: abd pain History of Present Illness 23 yo lady with a history of acute pancreatitis presenting with recurrent abdominal pain, nausea, and vomiting. The patient reports having had only a small amount of food (one applesauce) this morning, which immediately triggered vomiting. Earlier in the day, the pain was severe (rated 10/10) but improved to a tolerable level (3?4/10) after receiving a morphine shot. The patient has been unable to tolerate food, instead taking sips of water and Gatorade, but has experienced further episodes of vomiting. It was noted that the current episode appears to be a recurrence of pancreatitis, with lipase reported at approximately 350 (lower than previous values of 400?600). The patient also mentioned a previous episode earlier this month that led to placement of a heart monitor, which recorded episodes of chest pressure with sinus tachycardia and premature beats. Additionally, CT imaging showed slight thickening of the jejunum, possibly due to inflammatory spread from pancreatitis. The discussion also highlighted that alcohol intake may be contributing to these recurrent episodes of pancreatitis, with the patient recalling withdrawal-like symptoms such as shakiness, headaches, blurry vision, and occasional blackouts. Last drink of alcohol was about 36 hours ago. Review of Systems 2 Const: Denies: fever(s), chills, body aches or malaise ENMT: Denies: throat pain Card: Denies: chest pain, edema, pre-syncope or dyspnea on exertion Resp: Denies: dyspnea, productive cough, change in phlegm color or hemoptysis GI: Reports: abdominal pain, nausea and vomiting; Denies: diarrhea, constipation, hematochezia or melena : Denies: flank pain, urinary frequency or hematuria Musc: Denies: back pain, joint swelling or joint redness Skin/Breast: Denies: rash or new lesions Neuro: Denies: headache(s) or confusion Medications/Allergies Home Medications ?Medication ?Instructions ?Recorded ?Confirmed ?Last Taken ?Type No Known Home Medications 06/12/2405/16 Unknown History Allergies Allergy/AdvReac Type Severity Reaction Status Date / Time No Known Allergies Allergy Verified 06/12/24 07:16 PFSH Acute 2 PFSH: Medical History (Updated 04/30/25 @ 11:24 by Jose Guadarrama MD) Alcohol use disorder Deformity, clavicle Palpitations Pancreatitis Social History Smoking and tobacco/nicotine status: current every day tobacco/nicotine user cigarettes Packs smoked per day: 1 Years cigarettes smoked: 10 Alcohol intake: current Alcohol intake frequency: 3 or more drinks per day Alcohol type: beer and hard liquor Substance/Drug Use: current Substance/Drug use frequency: daily Vitals/I&O/Wt Last Vital Signs Temp 97.5 F L 06/12/24 07:06 Pulse 43 L 06/12/24 10:39 Resp 18 06/12/24 10:19 BP 166/94 06/12/24 10:39 Pulse Ox 100 06/12/24 10:39 O2 Del Method Room Air 06/12/24 10:54 06/11/24 06/12/24 06/12/24 22:59 06:59 14:59 Intake Total 1998 Balance 1998 Weight last 48 hrs Weight 71.923 kg Weight 63.503 kg Physical Exam 2 Narrative: Accompanied by her . Const: COMMON NORMALS: patient oriented x3 and alert GENERAL APPEARANCE: c ooperative ORIENTATION/CONSCIOUSNESS: Yes awake HENMT: COMMON NORMALS: oropharynx normal Neck/C-Spine: COMMON NORMALS: no JVD Resp: COMMON NORMALS: normal respiratory effort and clear to auscultation bilaterally AUSCULTATION: clear to auscultation bilaterally Cardio: COMMON NORMALS: no JVD, regular rhythm, S1 normal heart sound present, S2 normal heart sound present and No murmurs present (Cardio) RHYTHM: regular rhythm HEART SOUNDS: S1 normal heart sound present and S2 normal heart sound present GI: COMMON NORMALS: Normal to inspection, nondistended, normoactive bowel sounds present, Soft to palpation and non-tender PALPATION: Yes Soft to palpation Extremity: COMMON NORMALS: no joint enlargement and no pedal edema Neuro: COMMON NORMALS: patient oriented x3 and moves all extremities S ENSORIUM/ORIENTATION: Yes alert Skin: COMMON NORMALS: no rashes or lesions noted GENERAL SKIN EXAM: no rashes or lesions noted Data 06/12/24 07:23 06/12/24 07:23 A&P Assessment and plan (1) Pancreatitis: The patient is experiencing a recurrence of acute pancreatitis, presenting with abdominal pain, nausea, vomiting, decreased oral intake, an elevated lipase level (approximately 360), and CT evidence of mild jejunal thickening. This episode appears milder than previous ones but remains clinically significant, with alcohol use being a likely trigger. T. bili noted with elevation, discussed with her, up to 1.5, alk phos normal. CT abdomen pelvis without biliary dilation. Suspect secondary to dehydration, although had elevation back in December as well. Will reassess CMP. - Administer IV fluids for hydration, monitor for risk of fluid overload - Provide acid pastor medication to address associated gastritis/inflammation - Norris bowel rest with no oral intake until symptoms improve - Reintroduce clear liquids gradually (e.g., ice chips, and possibly chicken broth when tolerated) - Monitor clinical symptoms and lipase levels daily - Pain control, morphine IV as needed for severe breakthrough, Tylenol. Reviewed vitals, CBC, CMP, hCG, lipase, UA, UDS is pending, reviewed CT abdomen pelvis, ER provider note, discussed with ER provider. Triglycerides requested and reviewed, mild elevation, not likely contributing to pancreatitis. Discussed with her risk of progression to chronic pancreatitis and encouraged again complete abstinence from alcohol. (2) Alcohol use disorder: Alcohol is recognized as a likely trigger for the patient?s recurrent pancreatitis episodes. Monitor for alcohol withdrawal with history of withdrawal. - Advise complete avoidance of alcohol - Provide counseling on alcohol cessation as part of overall management Plan Nausea vomiting: Acute pancreatitis, possible alcohol induced gastritis. Discussed with her treatment with PPI at this time. Bowel rest, n.p.o. for now with sips and chips. Discussed with her to downgrade to sips and chips for now. Cigarette smoking: Discussed smoking cessation for 3.5 minutes, including risk of recurrence of pancreaititis in addition to cardiovascular complications and cancer of which she is aware. Patient is a current smoker, which contributes to overall health risks and may exacerbate pancreatic inflammation. - Initiate nicotine replacement therapy using patches and lozenges to aid in smoking cessation Palpitations: had completed a shaft mechanic, as well as echocardiogram, briefly discussed with her including mild valvular regurgitation and encouraged to follow up with primary provider for further detail. PDMP PDMP Reviewed: Not Reviewed Attestations 2 Medical Necessity Statement*: Place in observation for assessment and management of acute pancreatitis, monitor for alcohol withdrawal. and High MDM includes amount and/or complexity of data reviewed/ordered [ previous or external records, resulted lab(s)/test(s), ordered lab(s)/test(s) and other healthcare professional discussion] and described risk of complication, morbidity or mortality of management as documented Diagnoses Pancreatitis K85.90 Alcohol use disorder F10.90
[2024-06-12] MEDS: pantoprazole 40 mg SDV IVP (11:32)
[2024-06-12] MEDS: multivitamin therapeutic Tablet 1 TAB PO (11:32)
[2024-06-12] MEDS: thiamine 100 mg/mL 2mL SDV IM (11:32)
[2024-06-12] MEDS: folic acid 1 mg Tablet PO (11:32)
[2024-06-12] MEDS: thiamine 100 mg Tablet PO (11:32)
[2024-06-12] MEDS: nicotine 21 mg Patch 1 PATCH TRANSDERMA (11:33)
[2024-06-12] MEDS: sodium chlor 0.9% + KCl 20 mEq 20 MEQ/1,000 ML BAG 150 MEQ IV ×2 (11:48→18:31)
[2024-06-12] MEDS: trazodone 50 mg Tablet 25 MG PO (19:42)
[2024-06-13] VITALS (9 sets, daily range): BP systolic 163–174; BP diastolic 84–95; PULSE 51–58; RESP 16–18; TEMP 36.4–36.7; O2SAT 98–100
[2024-06-13] MEDS: morphine 4 mg/mL SDV 1 mL IVP ×4 (00:09→12:14)
[2024-06-13] MEDS: ondansetron 2 mg/ML SDV 2 mL 4 MG IVP (00:09)
[2024-06-13] MEDS: pantoprazole 40 mg SDV IVP ×2 (00:09→11:47)
[2024-06-13] MEDS: sodium chlor 0.9% + KCl 20 mEq 20 MEQ/1,000 ML BAG 150 MEQ IV (01:13)
[2024-06-13] MEDS: nicotine 21 mg Patch 1 PATCH TRANSDERMA (07:53)
[2024-06-13] MEDS: folic acid 1 mg Tablet PO (07:53)
[2024-06-13] MEDS: multivitamin therapeutic Tablet 1 TAB PO (07:54)
[2024-06-13] MEDS: thiamine 100 mg Tablet PO (07:54)
[2024-06-13 08:08] LABS: Basophils % 0.3 %; Eosinophils # 0.1 10^3/uL (0.0-0.8); Eosinophils % 1.3 %; Hematocrit 42.4 % (36-47); Lymphocytes # 1.8 10^3/uL (0.8-4.8); Lymphocytes % 19.4 %; Mean Corpuscular HGB Conc 33.5 g/dL (30-55); Mean Corpuscular Hemoglobin 32.2 pg (27-33); Mean Corpuscular Volume 96.1 fl (85-98); Mean Platelet Volume 9.6 fL (7.4-10.4); Monocytes # 0.8 10^3/uL (0.2-0.9); Monocytes % 8.5 %; Neutrophils # 6.44 10^3/uL (1.8-7.7); Neutrophils % 70.3 %; Nucleated Red Blood Cells % 0 %; Platelet Count 253 10^3/cmm (157-399); Red Blood Count 4.41 10^6/uL (3.85-5.65); Red Cell Distribution Width 11.8 % (12.1-15.1); White Blood Count 9.17 10^3/uL (3.29-11.43)
[2024-06-13 08:25] LABS: Lipase 191 U/L (13-60)
[2024-06-13 08:27] LABS: Alanine Aminotransferase 19 U/L (0-33); Albumin Level 4.2 g/dL (3.5-5.2); Anion Gap 16.9 (5-19); Aspartate Amino Transferase 28 U/L (0-32); Blood Urea Nitrogen 4 mg/dL (6-20); Calcium 8.5 mg/dL (8.5-10.5); Carbon Dioxide 20 mmol/L (22-29); Chloride 102 mmol/L (98-107); Glomerular Filtration Rate 121.8 mL/min (90-130); Glucose 80 mg/dL (65-115); Osmolality Calculated 276 mOsm/kg (285-295); Potassium 3.9 mmol/L (3.5-5.1); Sodium 135 mmol/L (136-145); Total Bilirubin 0.9 mg/dL (0.15-1.2); Total Protein 7.2 g/dL (6.6-8.7)
[2024-06-13 08:28] LABS: Alkaline Phosphatase 62 U/L (35-105)
--- NOTE | 2024-06-13 09:50 | PC.CHAP ---
Pastoral Care Encounter/Spiritual Assessment Type of Contact [] Declined wash box operator visit [] Patient/Family/Request visit [] Outpatient visit [] Follow-up visit [] Physician referral [] Code/Alert [x] Routine visit [] Staff referral [] Actively dying [] Patient sleeping [] Family support [] [] Out of room [] Palliative care [] [] Receiving care in room [] Pre-surgical visit [] Trauma [] Long length of stay [] ICU visit [] Other: Relational/Emotional Strength [x] Patient feels connected with others/family/visitors/staff [] Distress [] Loneliness/isolation [] Abandonment Spirituality of Patient [x] Person of Vania [] Attends Yazidi of their Vania [x] Believes in Prayer [] Reads Bible or Lutheran materials [] There are Spiritual issues to be addressed [employer] Manager Interventions [x] Prayer [x] Active listening [] Non-anxious presence [x] Spiritual/emotional support [] Crisis/trauma care [] Spiritual counseling [] Bereavement support [] Provided bereavement packet [] Provided Bible/devotional materials [] Provided toy/stuffed animal, coloring book to patient or family member [] Provided Communion [] Anointing/[place] [] Salvation [x] Completed spiritual assessment [] Other: Impact on Illness or Injury [] Angry [] Fearful [] Anxious [] Often cries [] Exhaustion [] Unable to work [] Unable to attend uatsdin [] Unable to walk/stand [] Unable to read [] Unable to drive [] Unable to eat/drink [] Unable to sleep [] Unable to be with family [] Patient intubated [] Other: Summary Time spent with patient 5 min
--- NOTE | 2024-06-13 14:34 | PM.DCS ---
Discharge Providers Date of Admission: 06/12/24 10:37 Date of Discharge: June 13, 2024 Attending Provider at Admission: Jose Guadarrama Attending Provider at Discharge: Jose Guadarrama Primary Care Provider: Cory Judd MD Diagnoses at Discharge Discharge Diagnosis (1) Pancreatitis: Status: Acute (2) Alcohol use disorder: Status: Acute Reason for Visit Reason for Visit: abd pain Brief History: 23 yo lady with a history of acute pancreatitis presenting with recurrent abdominal pain, nausea, and vomiting. The patient reports having had only a small amount of food (one applesauce) this morning, which immediately triggered vomiting. Earlier in the day, the pain was severe (rated 10/10) but improved to a tolerable level (3?4/10) after receiving a morphine shot. The patient has been unable to tolerate food, instead taking sips of water and Gatorade, but has experienced further episodes of vomiting. It was noted that the current episode appears to be a recurrence of pancreatitis, with lipase reported at approximately 350 (lower than previous values of 400?600). The patient also mentioned a previous episode earlier this month that led to placement of a heart monitor, which recorded episodes of chest pressure with sinus tachycardia and premature beats. Additionally, CT imaging showed slight thickening of the jejunum, possibly due to inflammatory spread from pancreatitis. The discussion also highlighted that alcohol intake may be contributing to these recurrent episodes of pancreatitis, with the patient recalling withdrawal-like symptoms such as shakiness, headaches, blurry vision, and occasional blackouts. Last drink of alcohol was about 36 hours ago. Hospital Course Hospital Course She was hospitalized and treated for mild acute pancreatitis, possible alcohol use gastritis, as well as discussed with her finding of duodenitis on CT. She was treated with bowel rest, IV fluid hydration, IV PPI. We discussed extensively abstinence from any alcohol due to risk of recurrence of pancreatitis, risk of progression to chronic pancreatitis, risk of other complications, as well as smoking cessation which may contribute to pancreatitis. Triglyceride levels were assessed and were not elevated. With rehydration T. bili levels normalized. Lipase level was reassessed and was decreasing. She was able to tolerate oral intake this morning. On additional discussion she is interested in returning to her primary provider's office to seek reinitiation of treatment with naltrexone to help with alcohol abstinence. She will need at least 7 to 10 days free from opioid before this medication can be initiated. At discharge she did request for pain medication for abdominal pain while recovering from pancreatitis. She additionally was encouraged to pursue outpatient rehabilitation and provided with information. Please follow-up with regards to recurrence of pancreatitis, alcohol use disorder. She is provided with prescription for pantoprazole as well for possible alcohol induced gastritis and jejunitis. 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 Physical Exam Const: COMMON NORMALS: patient oriented x3 and alert GENERAL APPEARANCE: cooperative ORIENTATION/CONSCIOUSNESS: Yes awake HENMT: COMMON NORMALS: oropharynx normal Neck/C-Spine: COMMON NORMALS: no JVD Resp: COMMON NORMALS: normal respiratory effort and clear to auscultation bilaterally AUSCULTATION: clear to auscultation bilaterally Cardio: COMMON NORMALS: no JVD, regular rhythm, S1 normal heart sound present, S2 normal heart sound present and No murmurs present (Cardio) RHYTHM: regular rhythm HEART SOUNDS: S1 normal heart sound present and S2 normal heart sound present GI: COMMON NORMALS: Normal to inspection, nondistended, normoactive bowel sounds present, Soft to palpation and non-tender PALPATION: Yes Soft to palpation and Yes Tenderness to palpation present (GI) (Epigastric) Extremity: COMMON NORMALS: no joint enlargement and no pedal edema Neuro: COMMON NORMALS: patient oriented x3 and moves all extremities SENSORIUM/ORIENTATION: Yes alert Skin: COMMON NORMALS: no rashes or lesions noted GENERAL SKIN EXAM: no rashes or lesions noted Discharge Data Studies Completed and Pending Completed Studies During Hospitalization Category Date Time Status CT abdomen pelvis w con* [id number] Stat Cat Scan 06/12/24 07:34 Completed Pending at discharge Category Date Time Status Urine Drug Monitoring Panel 1 Routine Lab 06/12/24 07:20 Received Radiology Impressions Abdomen/Pelvis CT 06/12/24 07:34 IMPRESSION: 1. Acute pancreatitis involving the pancreatic tail with no associated pseudocyst. No hemorrhagic necrosis. 2. Associated LEFT upper quadrant circumferential jejunal wall thickening. Probably a sympathetic reaction to the adjacent acute pancreatitis. 3. Negative gallbladder. No intrahepatic duct dilatation. 4. Small amount of free fluid in the pelvis. Laboratory Results WBC 9.17 10^3/uL (3.29-11.43) 06/13/24 07:58 RBC 4.41 10^6/uL (3.85-5.65) 06/13/24 07:58 Hgb 14.20 g/dL (11.27-16.99) 06/13/24 07:58 Hct 42.4 % (36-47) 06/13/24 07:58 MCV 96.1 fl (85-98) 06/13/24 07:58 MCH 32.2 pg (27-33) 06/13/24 07:58 MCHC 33.5 g/dL (30-55) 06/13/24 07:58 RDW 11.8 % (12.1-15.1) L 06/13/24 07:58 Plt Count 253 10^3/cmm (157-399) 06/13/24 07:58 MPV 9.6 fL (7.4-10.4) 06/13/24 07:58 Neut % (Auto) 70.3 % 06/13/24 07:58 Lymph % (Auto) 19.4 % 06/13/24 07:58 Long % (Auto) 8.5 % 06/13/24 07:58 Eos % (Auto) 1.3 % 06/13/24 07:58 Baso % (Auto) 0.3 % 06/13/24 07:58 Neut # (Auto) 6.44 10^3/uL (1.8-7.7) 06/13/24 07:58 Lymph # (Auto) 1.8 10^3/uL (0.8-4.8) 06/13/24 07:58 Long # (Auto) 0.8 10^3/uL (0.2-0.9) 06/13/24 07:58 Eos # (Auto) 0.1 10^3/uL (0.0-0.8) 06/13/24 07:58 Baso # (Auto) 0.0 10^3/uL (0.0-0.1) 06/13/24 07:58 Nucleated RBC % (auto) 0 % 06/13/24 07:58 Nucleated RBCs # 0.0 /100WBC 06/13/24 07:58 Sodium 135 mmol/L (136-145) L 06/13/24 07:58 Potassium 3.9 mmol/L (3.5-5.1) 06/13/24 07:58 Chloride 102 mmol/L (98-107) 06/13/24 07:58 Carbon Dioxide 20 mmol/L (22-29) L 06/13/24 07:58 Anion Gap 16.9 (5-19) 06/13/24 07:58 BUN 4 mg/dL (6-20) L 06/13/24 07:58 Creatinine 0.6 mg/dL (0.5-0.9) 06/13/24 07:58 GFR Calculation 121.8 mL/min (90-130) 06/13/24 07:58 Glucose 80 mg/dL (65-115) 06/13/24 07:58 Calculated Osmolality 276 mOsm/kg (285-295) L 06/13/24 07:58 Calcium 8.5 mg/dL (8.5-10.5) 06/13/24 07:58 Total Bilirubin 0.9 mg/dL (0.15-1.2) 06/13/24 07:58 AST 28 U/L (0-32) 06/13/24 07:58 ALT 19 U/L (0-33) 06/13/24 07:58 Alkaline Phosphatase 62 U/L (35-105) 06/13/24 07:58 Total Protein 7.2 g/dL (6.6-8.7) 06/13/24 07:58 Albumin 4.2 g/dL (3.5-5.2) 06/13/24 07:58 Globulin 3.0 g/dL (1.3-4.6) 06/13/24 07:58 Triglycerides 201 mg/dL (0-150) H 06/12/24 07:23 Lipase 191 U/L (13-60) H 06/13/24 07:58 HCG, Qual Negative (Negative) 06/12/24 07:23 Urine Color Dark yellow (Yellow) A 06/12/24 07:20 Urine Appearance Cloudy (CLEAR) A 06/12/24 07:20 Urine pH 6.0 (5-7) 06/12/24 07:20 Ur Specific [place] 1.018 (1.005-1.030) 06/12/24 07:20 Urine Protein 1+ (Negative) A 06/12/24 07:20 Urine Glucose (UA) Negative (Normal) 06/12/24 07:20 Urine Ketones 1+ (Negative) H 06/12/24 07:20 Urine Blood Negative (Negative) 06/12/24 07:20 Urine Nitrate Negative (Negative) 06/12/24 07:20 Urine Bilirubin Negative (Negative) 06/12/24 07:20 Urine Urobilinogen 1.0 mg/dL (Negative) 06/12/24 07:20 Ur Leukocyte Esterase Trace (Negative) A 06/12/24 07:20 Urine RBC None /hpf (0-2) 06/12/24 07:20 Urine WBC 0-4 /hpf (0-5) H 06/12/24 07:20 Ur Squamous Epith Cells 5-10 /hpf (0-5) H 06/12/24 07:20 Amorphous Sediment Not Reportable 06/12/24 07:20 Urine Bacteria 1+ /hpf (NONE) H 06/12/24 07:20 Fine Granular Casts 0-4 /lpf H 06/12/24 07:20 Vitals Last Vital Signs Temp 97.8 F 06/13/24 11:52 Pulse 58 L 06/13/24 12:37 Resp 18 06/13/24 12:14 BP 169/95 06/13/24 12:37 Pulse Ox 100 06/13/24 12:37 O2 Del Method Room Air 06/13/24 11:52 Discharge Plan Discharge Patient Disposition: Home Condition: Stable Prescriptions: New pantoprazole 40 mg tablet,delayed release (DR/EC) 40 mg PO DAILY 28 Days Qty: 28 0RF multivitamin with folic acid [Thera] 400 mcg Tablet 1 tab PO DAILY Qty: 90 0RF folic acid 1 mg Tablet 1 mg PO DAILY Qty: 90 0RF thiamine mononitrate (vit B1) [Vitamin B-1 (mononitrate)] 100 mg Tablet 100 mg PO DAILY Qty: 90 0RF nicotine 21 mg/24 hr Patch 24 Hour 1 patch transdermal DAILY Qty: 28 3RF nicotine (polacrilex) 4 mg Lozenge 4 mg mucous membrane Q4H PRN (Reason: Nicotine Cravings) Qty: 81 3RF acetaminophen 650 mg tablet extended release 650 mg PO Q8H PRN (Reason: pain) Qty: 30 0RF hydrocodone-acetaminophen 5-325 mg tablet 1 tab PO BID PRN (Reason: pain) Qty: 6 0RF Discharge Orders: Discharge Order (Routine); Ordered 06/13/24 Ordered By: Jose Guadarrama Referrals: Cory Judd MD [[place], [facility] - 06/17/24 10:30 am Discharge Diet: Advance as tolerated, As Directed and Full LIquid Patient Instructions: Pantoprazole (By mouth), Naltrexone (By injection), Pancreatitis (GEN), Alcohol Use Disorder (GEN) Activity Restrictions/Additional Instructions: Avoid any alcohol, please follow-up with your primary provider to further set up for naltrexone therapy to help reduce cravings for alcohol, additionally as per discussion please also pursue outpatient rehabilitation support to help stop drinking alcohol. It will have to be at least 7 to 10 days from your last dose of morphine this morning to be able to safely initiate naltrexone. Please make sure to indicate to your primary provider that today was the most recent morphine dose you had received in the hospital. In addition to avoiding alcohol, continue thiamine, multivitamin, folic acid, due to risk of dementia due to alcohol toxicity on the brain. Additionally as discussed please work on trying to quit smoking. Please follow-up with your primary provider for reassessment after pancreatitis and possible alcohol induced gastritis and jejunitis. Seek medical attention in case of worsening or new concerning symptoms. Discharge Attestations Time Spent in Discharge Care*: greater than 30 min Status at Discharge: Cognitive status at discharge: cognitively intact, Behavioral status at discharge: cooperative, Quality Metrics Clinical Quality Measures [ No reported AMI, CVA or VTE this stay] Coding Level of Care Code 92829 Total time (in minutes) for Discharge: 45 Diagnoses Pancreatitis K85.90 Alcohol use disorder F10.90
[2024-06-13 22:20] LABS: Amphetamines Level NEGATIVE ng/mL (<500); Barbiturates NEGATIVE ng/mL (<300); Benzodiazepines NEGATIVE ng/mL (<100); Cocaine Metabolite NEGATIVE ng/mL (<150); Marijuana Metabolite POSITIVE ng/mL (<20); Methadone Metabolite NEGATIVE ng/mL (<100); Opiates NEGATIVE ng/mL (<100); Oxidant NEGATIVE mcg/mL (<200); Phencyclidine NEGATIVE ng/mL (<25); Urine pH 6.2 (4.5-9.0)
== END 2024-06-13 12:30 | disposition home or self-care (01) ==
LOC: ER 08:54 → MEDSURG 10:40
PROVIDERS: Admitting Provider Internal Medicine; Emergency Provider Family Medicine; PCP Family Medicine; Visit Provider Internal Medicine
DX: K85.90 Acute pancreatitis without necrosis or infection, unspecified (principal); F10.90 Alcohol use, unspecified, uncomplicated; F17.210 Nicotine dependence, cigarettes, uncomplicated
CPT/HCPCS: 36415; 74177; 80053; 80307; 81001; 83690; 84478; 84703; 85025; 96361; 96372; 96374; 96375; 96376; 99285; G0378; J2270; J2405; J2470; J3411; J3480; J7030; J9999

== ENCOUNTER 2025-02-02 18:51 | Emergency (ER) | payer SELFPAY ==
[2025-02-02 18:53] VITALS: BP 181/90; PULSE 64; RESP 22; TEMP 36.5; O2SAT 99; BMI 21.2
--- NOTE | 2025-02-02 19:35 | ED_ITS ---
HPI - Abdominal Pain 2 General: Chief Complaint: Abdominal Pain Stated Complaint: upper abd pain sharp pain n/v Time Seen by Provider: 02/02/25 19:06 Source: patient Mode of arrival: ambulatory Limitations: no limitations History of Present Illness: 24-year-old female has a history of alco holism states she has been having epigastric abdominal pain over the last 2 to 3 days states she is also has had vomiting. She denies any fevers. States the pain is sharp in nature rates an 8 out of 10 feels like her previous pancreatitis in the past. Related Data Date of Last Menstrual Period: 01/21/25 Previous Rx's ?Medication ?Instructions ?Recorded acetaminophen 650 mg 650 mg PO Q8H PRN pain #30 t abs 06/13/24 tablet,extended release folic acid 1 mg tablet 1 mg PO DAILY #90 tabs 06/13 hydrocodone 5 mg-acetaminophen 325 1 tab PO BID PRN pa in #6 tabs 06/13/24 mg tablet multivitamin with folic acid 400 1 tab PO DAILY #90 ta bs 06/13/24 mcg tablet (Thera) nicotine (polacrilex) 4 mg buccal 4 mg mucous membrane Q4H PRN 06/13/24 lozenge Nicotine Cravings #81 ea nicotine 21 mg/24 hr daily 1 patch transdermal DAILY # 28 ea 06/13/24 transdermal patch thiamine mononitrate (vit B1) 100 100 mg PO DAILY #90 tabs 06/13/24 mg tablet (Vitamin B-1 (mononitrate)) ondansetron 4 mg disintegrating 4 mg PO Q6H PRN nausea and 02/02/25 tablet vomiting #14 tabs oxycodone-acetaminophen 7.5 mg-325 1 tab PO Q8H PRN pa in #20 tabs 02/02/25 mg tablet (Percocet) Allergies Allergy/AdvReac Type Severity Reaction Status Date / Time No Known Allergies Allergy Verified 06/12/24 07:16 Review of Systems 2 GI: Reports: abdominal pain PFSH ED 2 PFSH: Medical History (Updated 02/02/25 @ 21:05 by Sherita Cordoba MD) Alcohol use disorder Deformity, clavicle Palpitations Pancreatitis Social History Smoking and tobacco/nicotine status: current every day tobacco/nicotine user cigarettes Packs smoked per day: 1 Years cigarettes smoked: 10 Alcohol intake: current Alcohol intake frequency: 3 or more drinks per day Alcohol type: beer and hard liquor Substance/Drug Use: current Substance/Drug use frequency: daily Female Reproductive History: Date of last menstrual period: 01/21/25 Physical Exam 2 Const: COMMON NORMALS: no acute distress, patient oriented x3 and healthy appearing HENMT: COMMON NORMALS: normocephalic and atraumatic HEAD & SCALP: n ormocephalic and atraumatic Neck/C-Spine: COMMON NORMALS: full ROM and supple Chest: COMMONS NORMALS: normal inspection of the chest Resp: COMMON NORMALS: normal respiratory effort, No retractions, No use of accessory muscles and clear to auscultation bilaterally AUSCULTATION: clear to auscultation bilaterally Cardio: COMMON NORMALS: regular rate, regular rhythm and No murmurs present (Cardio) RATE: regular rate RHYTHM: regular rhythm GI: COMMON NORMALS: Normal to inspection, nondistended, normoactive bowel sounds present, Soft to palpation and no masses PALPATION: Yes Soft to palpation and Yes Tenderness to palpation present (GI) (epigastric tendernes) Extremity: COMMON NORMALS: normal to inspection and full ROM Neuro: COMMON NORMALS: patient oriented x3, moves all extremities and no focal motor deficits Psych: COMMON NORMALS: mental status grossly normal, Normal thought process present and cooperative THOUGHT PROCESS: Normal thought process present Skin: COMMON NORMALS: no rashes or lesions noted and no wounds GENERAL SKIN EXAM: no rashes or lesions noted Course 2 Vital Signs: Vital signs: Vital Signs Temperature 97.7 F 02/02/25 18:53 Pulse Rate 64 02/02/25 18:53 Respiratory Rate 18 02/02/25 20:02 Blood Pressure 181/90 02/02/25 18:53 Pulse Oximetry 99 02/02/25 20:02 MDM - Abdominal Pain Medical Decision Making Patient presents for upper abdominal pain differential includes pancreatitis, gastritis, cholecystitis, appendicitis. Patient's lipase here is mildly elevated CT shows a mild pancreatitis no signs of cholecystitis or appendicitis. Her pain has improved here she said no vomiting did give her IV fluids I feel she is stable for discharge at this time as her pancreatitis is mild and pain is controlled here. She is to do a liquid diet we will write her Percocet and Zofran she is return if worsening she understands agrees to plan Medical Records I reviewed the patient's medical records. Lab Data I reviewed the patient's lab results. 02/02/25 19:46 02/02/25 19:46 Labs/Radiology: Radiology Impressions Abdomen/Pelvis CT 02/02/25 20:17 IMPRESSION: 1. Changes consistent with focal mild acute pancreatitis in the tail of the pancreas. 2. Dominant follicles in both ovaries. 3. Incidental/nonacute findings are listed in the report. Laboratory Results WBC 11.36 10^3/uL (3.29-11.43) 02/02/25 19:46 RBC 4.82 10^6/uL (3.85-5.65) 02/02/25 19:46 Hgb 15.30 g/dL (11.27-16.99) 02/02/25 19:46 Hct 43.4 % (36-47) 02/02/25 19:46 MCV 90.0 fl (85-98) 02/02/25 19:46 MCH 31.7 pg (27-33) 02/02/25 19:46 MCHC 35.3 g/dL (30-55) 02/02/25 19:46 RDW 10.9 % (12.1-15.1) L 02/02/25 19:46 Plt Count 347 10^3/cmm (157-399) 02/02/25 19:46 MPV 9.5 fL (7.4-10.4) 02/02/25 19:46 Neut % (Auto) 69.6 % 02/02/25 19:46 Lymph % (Auto) 22.5 % 02/02/25 19:46 [place] % (Auto) 6.7 % 02/02/25 19:46 Eos % (Auto) 0.4 % 02/02/25 19:46 Baso % (Auto) 0.4 % 02/02/25 19:46 Neut # (Auto) 7.91 10^3/uL (1.8-7.7) H 02/02/25 19:46 Lymph # (Auto) 2.6 10^3/uL (0.8-4.8) 02/02/25 19:46 [place] # (Auto) 0.8 10^3/uL (0.2-0.9) 02/02/25 19:46 Eos # (Auto) 0.1 10^3/uL (0.0-0.8) 02/02/25 19:46 Baso # (Auto) 0.0 10^3/uL (0.0-0.1) 02/02/25 19:46 Nucleated RBC % (auto) 0 % 02/02/25 19:46 Nucleated RBCs # 0.0 /100WBC 02/02/25 19:46 Sodium 134 mmol/L (136-145) L 02/02/25 19:46 Potassium 3.6 mmol/L (3.5-5.1) 02/02/25 19:46 Chloride 94 mmol/L (98-107) L 02/02/25 19:46 Carbon Dioxide 22 mmol/L (22-29) 02/02/25 19:46 Anion Gap 21.6 (5-19) H 02/02/25 19:46 BUN 7 mg/dL (6-20) 02/02/25 19:46 Creatinine 0.7 mg/dL (0.5-0.9) 02/02/25 19:46 GFR Calculation 101.1 mL/min (90-130) 02/02/25 19:46 Glucose 99 mg/dL (65-115) 02/02/25 19:46 Calculated Osmolality 276 mOsm/kg (285-295) L 02/02/25 19:46 Calcium 10.7 mg/dL (8.5-10.5) H 02/02/25 19:46 Total Bilirubin 0.6 mg/dL (0.15-1.2) 02/02/25 19:46 AST 31 U/L (0-32) 02/02/25 19:46 ALT 23 U/L (0-33) 02/02/25 19:46 Alkaline Phosphatase 62 U/L (35-105) 02/02/25 19:46 Total Protein 9.1 g/dL (6.6-8.7) H 02/02/25 19:46 Albumin 5.3 g/dL (3.5-5.2) H 02/02/25 19:46 Globulin 3.8 g/dL (1.3-4.6) 02/02/25 19:46 Lipase 286 U/L (13-60) H 02/02/25 19:46 HCG, Qual Negative (Negative) 02/02/25 19:46 Urine Color Yellow (Yellow) 02/02/25 20:16 Urine Appearance Clear (CLEAR) 02/02/25 20:16 Urine pH 8.5 (5-7) A 02/02/25 20:16 Ur Specific [place] 1.005 (1.005-1.030) 02/02/25 20:16 Urine Protein Negative (Negative) 02/02/25 20:16 Urine Glucose (UA) Negative (Normal) 02/02/25 20:16 Urine Ketones 1+ (Negative) H 02/02/25 20:16 Urine Blood Negative (Negative) 02/02/25 20:16 Urine Nitrate Negative (Negative) 02/02/25 20:16 Urine Bilirubin Negative (Negative) 02/02/25 20:16 Urine Urobilinogen 0.2 mg/dL (Negative) 02/02/25 20:16 Ur Leukocyte Esterase Negative (Negative) 02/02/25 20:16 Urine RBC 0-2 /hpf (0-2) 02/02/25 20:16 Urine WBC 0-5 /hpf (0-5) 02/02/25 20:16 Ur Squamous Epith Cells 0-5 /hpf (0-5) 02/02/25 20:16 Amorphous Sediment Not Reportable 02/02/25 20:16 Urine Bacteria None seen /hpf (NONE) 02/02/25 20:16 Hyaline Casts 0-4 /lpf H 02/02/25 20:16 All radiology interpretation(s) finalized by discharge Discharge Plan Discharge Patient Disposition: Home Clinical Impression: Pancreatitis Condition: Stable Prescriptions: New ondansetron 4 mg tablet,disintegrating 4 mg PO Q6H PRN (Reason: nausea and vomiting) Qty: 14 0RF oxycodone-acetaminophen [Percocet] 7.5-325 mg tablet 1 tab PO Q8H PRN (Reason: pain) Qty: 20 0RF No Action multivitamin with folic acid [Thera] 400 mcg Tablet 1 tab PO DAILY Qty: 90 0RF folic acid 1 mg Tablet 1 mg PO DAILY Qty: 90 0RF thiamine mononitrate (vit B1) [Vitamin B-1 (mononitrate)] 100 mg Tablet 100 mg PO DAILY Qty: 90 0RF nicotine 21 mg/24 hr Patch 24 Hour 1 patch transdermal DAILY Qty: 28 3RF nicotine (polacrilex) 4 mg Lozenge 4 mg mucous membrane Q4H PRN (Reason: Nicotine Cravings) Qty: 81 3RF acetaminophen 650 mg tablet extended release 650 mg PO Q8H PRN (Reason: pain) Qty: 30 0RF hydrocodone-acetaminophen 5-325 mg tablet 1 tab PO BID PRN (Reason: pain) Qty: 6 0RF Discharge Orders: Discharge ED (Routine); Ordered 02/02/25 Ordered By: Sherita Cordoba Referrals: Cory Judd MD [Primary Care Provider, [facility]] - 4-7 days Discharge Diet: Clear Liquid Discharge Activity: Resume usual activity Patient Instructions: Pancreatitis (ED) Print Language: Slovak Coding 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
[2025-02-02 19:52] LABS: Hematocrit 43.4 % (36-47); Hemoglobin 15.30 g/dL (11.27-16.99); Mean Corpuscular HGB Conc 35.3 g/dL (30-55); Mean Corpuscular Hemoglobin 31.7 pg (27-33); Mean Corpuscular Volume 90.0 fl (85-98); Nucleated Red Blood Cells % 0 %; Platelet Count 347 10^3/cmm (157-399); Red Blood Count 4.82 10^6/uL (3.85-5.65); White Blood Count 11.36 10^3/uL (3.29-11.43)
[2025-02-02 20:02] VITALS: RESP 18; O2SAT 99
[2025-02-02] MEDS: ondansetron 2 mg/ML SDV 2 mL 4 MG IVP (20:02)
[2025-02-02] MEDS: morphine 4 mg/mL SDV 1 mL IVP (20:02)
[2025-02-02 20:14] LABS: Alanine Aminotransferase 23 U/L (0-33); Albumin Level 5.3 g/dL (3.5-5.2); Alkaline Phosphatase 62 U/L (35-105); Anion Gap 21.6 (5-19); Aspartate Amino Transferase 31 U/L (0-32); Blood Urea Nitrogen 7 mg/dL (6-20); Calcium 10.7 mg/dL (8.5-10.5); Carbon Dioxide 22 mmol/L (22-29); Chloride 94 mmol/L (98-107); Globulin 3.8 g/dL (1.3-4.6); Glucose 99 mg/dL (65-115); Lipase 286 U/L (13-60); Osmolality Calculated 276 mOsm/kg (285-295); Potassium 3.6 mmol/L (3.5-5.1); Sodium 134 mmol/L (136-145); Total Protein 9.1 g/dL (6.6-8.7)
--- NOTE | 2025-02-02 20:17 | CTR_ITS ---
PROCEDURE INFORMATION: Exam: CT Abdomen And Pelvis With Contrast Exam date and time: 02/02/2025 8:37 PM Age: 24 years old Clinical indication: Pain and abnormal findings; Abnormal lab test; Elevated lipase; Nausea and vomiting; Abdominal pain; Epigastric pain with n/v. Elevated lipase. ; Additional info: Abd pain TECHNIQUE: Imaging protocol: Computed tomography of the abdomen and pelvis with contrast. Radiation optimization: All CT scans at this facility use at least one of these dose optimization techniques: automated exposure control; mA and/or kV adjustment per patient size (includes targeted exams where dose is matched to clinical indication); or iterative reconstruction. Contrast material: OMNI 350; Contrast volume: 100 ml; Contrast route: INTRAVENOUS (IV); COMPARISON: CT abdomen pelvis w con* [id number] 06/12/2024 8:44 AM RADIATION DOSE METRICS: Total DLP (mGy-cm): 489.14 FINDINGS: Tubes, catheters and devices: An ASD closure device is partially visualized. Lungs: Visualized lungs are clear. Pleural spaces: No pleural effusion. Heart: Visualized heart is normal in size. Liver: Stable small area of decreased density in the liver adjacent to the falciform ligament, this most likely represents focal fatty infiltration. Gallbladder and biliary ducts: The gallbladder is unremarkable. No biliary ductal dilatation. Pancreas: Mild peripancreatic inflammatory change and small amount of free fluid around the tail of the pancreas, consistent with focal mild acute pancreatitis. No pancreatic ductal dilatation. No pancreatic atrophy. Spleen: The spleen is unremarkable. Small splenule in the left upper quadrant. Adrenal glands: The right and left adrenal glands are unremarkable. Kidneys and ureters: The right and left kidneys are unremarkable. The right and left ureters are unremarkable. Stomach and bowel: No acute abnormality in the stomach, small bowel, or colon. Appendix: The appendix is visualized and is unremarkable. No findings to suggest acute appendicitis. Intraperitoneal space: No free intraperitoneal air. No ascites. No abscess. Vasculature: No evidence for aortic aneurysm or aortic dissection. Hepatic veins, portal veins, splenic vein, and SMV are patent. Lymph nodes: No lymphadenopathy. Urinary bladder: The bladder is unremarkable. Reproductive: Multiple Nabothian cysts in the cervix. Multiple subcentimeter follicles in both right and left ovaries. Dominant follicle in the right ovary measuring 2.0 x 1.5 cm (series 3, image 62). Dominant follicle in the left ovary measuring 1.5 x 1.5 cm (series 3, image 69). Bones/joints: No acute fracture. Soft tissues: No acute abnormality in the extra-abdominal soft tissues. CT/CT abdomen pelvis w con* [id number] IMPRESSION: 1. Changes consistent with focal mild acute pancreatitis in the tail of the pancreas. 2. Dominant follicles in both ovaries. 3. Incidental/nonacute findings are listed in the report.
[2025-02-02 20:25] LABS: Glucose Urine UA Negative (Normal); Nitrate Urine Negative (Negative); Specific Gravity, Urine 1.005 (1.005-1.030)
[2025-02-02 20:30] LABS: Add Urine Microscopic? YES
[2025-02-02 20:35] LABS: HCG, Serum Qual Negative (Negative)
[2025-02-02] MEDS: iohexol 350 mg/mL 500 mL Btl (per mL) IV (20:37)
[2025-02-02 21:16] VITALS: PULSE 65; O2SAT 99
[2025-02-02] MEDS: HYDROcodone-acetaminophen 5-325 mg Tablet 2 TAB PO (21:17)
== END 2025-02-02 21:18 | disposition home or self-care (01) ==
PROVIDERS: Emergency Provider Emergency Medicine; PCP Family Medicine
DX: K85.90 Acute pancreatitis without necrosis or infection, unspecified (principal); F17.210 Nicotine dependence, cigarettes, uncomplicated
CPT/HCPCS: 74177; 80053; 81001; 83690; 84703; 85025; 96361; 96374; 96375; 99285; J2270; J2405; J7030; J9999